=== PATIENT | female | born 1975 | race Hispanic/Latino ===

== ENCOUNTER 2022-12-19 19:19 | Emergency (ER) | payer SELFPAY ==
--- OUTSIDE RECORDS SUMMARY | 2022-12-19 19:23 | XMS REPORT | Continuity of Care Document ---
:[address] [facility] t Address [address] [place] [address] [address] [place] [address] Care Team Providers Name Role Phone Thelma Polanco Primary Care Physician Unavailable DRU PICKERING Attending Clinician Unavailable Dru Pickering MD Attending Clinician OLGA DUGGAN Attending Clinician Unavailable [place] Attending Clinician Unavailable OTHER, ENTER NAME IN NOTES Attending Clinician Unavailable Re Daniels PA-C Attending Clinician RE DANIELS Attending Clinician Unavailable Doctor Unassigned, [place] Attending Clinician Unavailable [place] Admitting Clinician Unavailable Payers Payer Name Policy Type Policy Number Effective Date Expiration Date S ource Problems This patient has no known problems. Allergies, Adverse Reactions, Alerts Allergy Allergy Status Severity Reaction(s) Onset Inactive Treating Comm ents Source Name Type Date Date Clinician Mold Allergy Active [place] [facility] VENOM-WA Allergy Active [place] SP to [facility] ANIMAL Allergy Active [place] DANDER [facility] House Allergy Active [place] Dust to [facility] INSECT Allergy Active [place] VENOM to [facility] Latex Allergy Active [place] [facility] NO KNOWN Drug Active Univers ALLERGIE Class [facility] [place] [facility] Social History Social Habit Start Date Stop Date Quantity Comments Source History of Cigarette Smoker Universi ty of tobacco use [facility] Exposure to 2022-12-01 2022-12-11 Not sure University SARS-CoV-2 00:00:00 14:29:00 [facility] (event) Branch Tobacco use and 2022-12-11 2022-12-11 Smokeless tobacco Un iversity of exposure 00:00:00 00:00:00 non-user [facility] Sex Assigned At [birth year] Universit y of 00:00:00 00:00:00 [facility] Smoking Status Start Date Stop Date Source Heavy Tobacco Smoker [facility] Tobacco smoking consumption [facility] Smokes tobacco daily 2022-12-11 00:00:00 [facility] Medications Ordered Filled Start Stop Current Ordering Indication Dosage Frequency Signature Comments Components Source Medication Medication Date Date Medication? Clinician (SIG) Name Name metoprolol Yes 25mg Take 1 Unive rs succinate 3-10 tablet by ity o f XL 25 mg 24 [place] tablet 00 the Medical morning. Branch metoprolol Yes 25mg Take 1 Unive rs succinate 3-10 tablet by ity o f XL 25 mg 24 [place] 00 the Medical morning. Branch losartan-hy Yes 1{tbl} Take 1 Un chaitanya drochloroth 3-03 tablet by ity of iazide 00:00: mouth [place] 50-12.5 mg 00 every Medical per tablet morning. Bran h losartan-hy Yes 1{tbl} Take 1 Un chaitanya drochloroth 3-03 tablet by ity of iazide 00:00: mouth [place] 50-12.5 mg 00 every Medical per tablet morning. Branc h aspirin 81 aspirin 81 No 1capsul Q1D aspirin 81 [place] mg capsule mg capsule e(s) mg capsule da Take 1 Take 1 Take 1 [facility] capsule capsule capsule al every day every day every day Health by oral by oral by oral Outrea c route. route. route. h Program doxycycline doxycycline No doxycyclin [place] hyclate 100 hyclate 100 e hyclate da mg capsule mg capsule 100 mg E piscop TAKE 1 TAKE 1 capsule al CAPSULE BY CAPSULE BY TAKE 1 H ealth MOUTH TWICE MOUTH TWICE CAPSULE BY Outreac DAILY FOR 7 DAILY FOR 7 MOUTH h DAYS DAYS TWICE Program DAILY FOR 7 DAYS losartan 50 losartan 50 No 1 Q1D losartan [place] mg-hydrochl mg-hydrochl 50 d a orothiazide orothiazide mg-hydroch [facility] 12.5 mg 12.5 mg lorothiazi al tablet Take tablet Take de 12.5 mg Health 1 tablet 1 tablet tablet Outre ac every day every day Take 1 h by oral by oral tablet Program route in route in every day the the by oral morning. morning. route in for blood for blood the pressure pressure morning. for blood pressure Wellbutrin Wellbutrin No 1 Q1D Wellbutrin [place] SR 150 mg SR 150 mg SR 150 mg da tablet, 12 tablet, 12 tablet, 12 [facility] hr hr hr al sustained-r sustained-r sustained- Health elease Take elease Take release Outreac 1 tablet 1 tablet Take 1 h every day every day tablet Pro gram by oral by oral every day route. for route. for by oral 3 days then 3 days then route. for increase to increase to 3 days 1 tablet 1 tablet then twice twice increase daily. daily. to 1 tablet twice daily. Immunizations Ordered Immunization Filled Immunization Date Status Commen ts Source Name Name Tdap Tdap 2020-10-01 Completed [facility] 00:00:00 [facility] Vital Signs Vital Name Observation Time Observation Value Comments Source Systolic blood 2022-12-11 19:48:00 183 mm[Hg[facility] Diastolic blood 2022-12-11 19:48:00 102 mm[facility]Hg[facility] Heart rate 2022-12-11 19:48:00 82 /min [facility] Respiratory rate 2022-12-11 19:48:00 18 /min [facility] Body height 2022-12-11 19:48:00 147.3 cm [facility] Body weight 2022-12-11 19:48:00 68.04 kg [facility] BMI 2022-12-11 19:48:00 31.35 kg/m2 [facility] BP Diastolic 2022-12-01 00:00:00 130 mm[Hg] [place] [facility] Height 2022-12-01 00:00:00 58 [in_i] [place] [facility] BMI (Body Mass 2022-12-01 00:00:00 31.4 kg/m2 [place] nurses aide Index) [facility] BP Systolic 2022-12-01 00:00:00 186 mm[Hg] [place] [facility] Body Weight 2022-12-01 00:00:00 2405 [oz_av] [place] [facility] Procedures Procedure Date / Time Performed Performing Clinician [facility] CONSENT/REFUSAL FOR 2022-11-17 16:10:03 Doctor Unassigned, No Un [facility] DIAGNOSIS AND Name [facility] Branch TREATMENT Caesarean Section 2007-10-01 00:00:00 [facility] Tubal Ligation 2007-10-01 00:00:00 [facility] Plan of Care Planned Activity Planned Date Details Comments Source Future Scheduled 2022-12-06 HbA1c (hemoglobin [place] nurses aide [facility] Test 00:00:00 A1c), blood [code Health Out reach = HbA1c Program (hemoglobin A1c), blood] Future Scheduled 2022-12-06 microalbumin/creat [place] [facility] 00:00:00 inine, mass ratio, Health [facility] urine [code = Program microalbumin/creat inine, mass ratio, urine] Future Scheduled 2022-12-06 lipid panel, serum [place] [facility] 00:00:00 [code = lipid Health Outreac h panel, serum] Program Future Scheduled 2022-12-06 thyroid panel, [facility] Test 00:00:00 serum [code = Health Outreac h thyroid panel, Program serum] Future Scheduled 2022-12-06 CBC w/ auto diff [place] [facility] 00:00:00 [code = CBC w/ Health Outrea ch auto diff] Program Future Scheduled 2022-12-06 CMP, serum or [facility] Test 00:00:00 plasma [code = Health Outrea ch CMP, serum or Program plasma] Future Scheduled 2022-12-06 vitamin D, [facility] Test 00:00:00 25-hydroxy, total, Health [facility] serum [code = Program vitamin D, 25-hydroxy, total, serum] Encounters Start End Encounter Admission Attending Care Care Encounter Source Date/Time Date/Time Type Type Clinicians Facility Department ID 2022-12-11 2022-12-11 [facility] [id number] Univers 14:45:00 15:03:00 DRU [facility] 2022-12-11 2022-12-11 Office [facility] [id number] Univers 14:45:00 15:03:00 Visit Dru PRATER [id number] [facility] [id number] Matthew hannah PROFESSIO [id number] [address] 2022-12-04 2022-12-04 [facility] [id number] Univers 09:00:00 09:00:00 OLGA [facility] 2022-12-02 2022-12-02 Outpatient KAIDEN CADET [facility] [id number] [place] 00:00:00 00:00:[place] [id number] [place] [facility] 2022-12-01 2022-12-01 Outpatient KAIDEN CADET [facility] [id number] [place] 00:00:00 00:[place] [id number] [facility] 2022-12-01 2022-12-01 Vandana CADET [place] - [id number] M [facility] 00:00:00 00:00:00 Dagoberto Brothers, [facility] INSTRUCTIONAL WRITER: [id number] [facility] [place], [facility] [id number] Joselito lópez , Ph. 2022-11-30 2022-11-30 Outpatient [facility] [id number] [place] 00:00:00 00:00:[place] [id number] da [facility] Outreac h Program 2022-11-27 2022-11-27 Outpatient UR OTHER, [facility] [id number] [place] 18:55:00 18:55:00 ENTER -[id number] [facility] 2022-11-17 2022-11-17 Office Re Daniels RUST [id number] Univers 10:20:00 10:40:00 Visit MULTISPEC [id number] ity of [place] [id number] [facility] [id number] [facility] [place] [address] [facility] 2022-11-17 2022-11-17 Outpatient R RE DANIELS [facility] [id number] Univers 10:20:00 10:20:00 RE DANIELS it y of [facility] 2022-11-17 2022-11-17 Orders Doctor JEN [id number] Univers 00:00:00 00:00:00 Only Unassigned, FRANCESCA [id number] ity of [place] [facility] [id number] Juan [id number] [place] [address] Branch Results This patient has no known results.
[2022-12-19] MEDS ORDERED: ACETAMINOPHEN 325 MG TABLET ONE (21:47)
[2022-12-19 21:50] LABS: Absolute Lymphocytes (CBC) 2.3 K/uL (0.7-4.9); Hematocrit 40.4 % (36.0-45.0); Lymphocytes % 20.8 % (15.3-44.8); MCV 83.2 fL (80-100); MPV 7.1 fL (7.6-11.3); RBC Red Blood Cell Count 4.86 M/uL (3.86-4.86)
[2022-12-19 21:58] LABS: Protime INR 1.09
--- NOTE | 2022-12-19 22:00 | RAD REPORT ---
EXAM DESCRIPTION: RAD - Chest Single View - 12/19/2022 9:47 pm CLINICAL HISTORY: CHEST PAIN Chest pain. COMPARISON: <Comparisons> FINDINGS: Portable technique limits examination quality. The lungs are grossly clear. The heart is normal in size. No displaced fractures. IMPRESSION: No acute intrathoracic process suspected.
--- NOTE | 2022-12-19 22:12 | RAD REPORT ---
EXAM DESCRIPTION: CT - Head Brain Wo Cont - 12/19/2022 10:03 pm CLINICAL HISTORY: headache, elevated blood pressure COMPARISON: No comparisons TECHNIQUE: All CT scans are performed using dose optimization technique as appropriate and may inclu de automated exposure control or mA/KV adjustment according to patient size. FINDINGS: No intracranial hemorrhage, hydrocephalus or extra-axial fluid collection.No areas of brai n edema or evidence of midline shift. The paranasal sinuses and mastoids are clear. The calvarium is intact. IMPRESSION: No acute intracranial abnormality.
[2022-12-19 22:20] LABS: BUN Blood Urea Nitrogen 22 mg/dL (7-18); Bicarbonate 27 mEq/L (21-32); Glucose Level 106 mg/dL (74-106); Potassium 3.7 mEq/L (3.5-5.1); Sodium Level 138 mEq/L (136-145)
[2022-12-19 22:21] LABS: ALT/SGPT 22 U/L (13-56); AST/SGOT 9 U/L (15-37); Albumin 3.4 g/dL (3.4-5.0); Alkaline Phosphatase 113 U/L (45-117); Bilirubin Direct < 0.1 mg/dL (0-0.2); Bilirubin Total 0.2 mg/dL (0.2-1.0); Glomerular Filtration Rate 79 ml/min (=/>90); Protein, Total 7.8 g/dL (6.4-8.2)
[2022-12-19 22:22] LABS: Magnesium 2.1; NT PRO-BNP 82 pg/mL (<125); Troponin High Sensitivity 6.7 (<58.9)
--- NOTE | 2022-12-19 22:58 | ER ---
Nurse's Notes [facility] Name: Cynthia López Age: 47 yrs Sex: Female : 1975 Arrival Date: 12/19/2022 Time: 19:24 Bed 24 Private MD: Diagnosis: Chest pain, unspecified;Headache Presentation: 12/19 19:45 Chief complaint: Patient states: States "I got DX with HTN 2 weeks ago", states has had ll3 chest pain, H/A, and high BP ever since. Coronavirus screen: Vaccine status: Patient reports being unvaccinated. At this time, the client does not indicate any symptoms associated with coronavirus-19. Ebola Screen: No symptoms or risks identified at this time. Initial Sepsis Screen: Does the patient meet any 2 criteria? HR > 90 bpm. No. Patient's initial sepsis screen is negative. Does the patient have a suspected source of infection? No. Patient's initial sepsis screen is negative. Risk Assessment: Do you want to hurt yourself or someone else? Patient reports no desire to harm self or others. Onset of symptoms was December 05, 2022. 19:45 Method Of Arrival: Ambulatory ll3 19:45 Acuity: RAKEL 2 ll3 Triage Assessment: 19:48 Headache History: The patient has had previous headaches and this one is similar to ll3 previous episodes. General: Appears uncomfortable, Behavior is calm, cooperative. Pain: Complains of pain in mid-sternal area Pain currently is 3 out of 10 on a pain scale. Quality of pain is described as pressure, Pain began 2 weeks ago Is continuous. Pain: Also complains of shortness of breath. Neuro: Reports dizziness, since 2 weeks ago headache. Cardiovascular: Chest pain is described as vague, quality is pressure, is located in anterior chest wall began 2 weeks ago. Respiratory: Reports shortness of breath Respiratory effort is even, unlabored, Respiratory pattern is regular, symmetrical. Derm: Skin is pink, warm \\T\\ dry. 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 - Social history:: Smoking status: Patient reports the use of cigarette tobacco products, smokes one pack cigarettes per day. Screenin:00 [facility] ED Fall Risk Assessment (Adult) History of falling in the last 3 months, pf1 including since admission No falls in past 3 months (0 pts) Confusion or Disorientation No (0 pts) Intoxicated or Sedated No (0 pts) Impaired Gait No (0 pts) Mobility Assist Device Used No (0 pt) Altered Elimination No (0 pt) Score/Fall Risk Level 0 - 2 = Low Risk Oriented to surroundings, Maintained a safe environment, Educated pt \\T\\ family on fall prevention, incl call for assistance when getting out of bed, Assessed \\T\\ reinforced patient's understanding of fall precautions, Provided non-skid footwear, Hourly rounding (assess needs \\T\\ fall precautionary measures) done, Used ambulatory aids as needed (educated on \\T\\ assisted with), Used gait belt as appropriate. 21:00 Abuse screen: Denies threats or abuse. Nutritional screening: No deficits noted. pf1 Tuberculosis screening: No symptoms or risk factors identified. Assessment: 21:00 General: Appears in no apparent distress. comfortable, well groomed, well developed, pf1 Behavior is calm, cooperative, appropriate for age, quiet. 21:00 Pain: Complains of pain in chest and mid-sternal area Pain currently is 0 out of 10 on pf1 a pain scale. Pain began 2 weeks. Neuro: Level of Consciousness is awake, alert, obeys commands, Oriented to person, place, time, situation, Reports headache 2 weeks with elevated BP. Cardiovascular: Parent/caregiver reports patient has had chest pain, since elevated BP. Respiratory: No deficits noted. Airway is patent Trachea midline Respiratory effort is even, unlabored, Respiratory pattern is regular, symmetrical, Breath sounds are clear bilaterally. GI: No deficits noted. Abdomen is flat, non-distended, Bowel sounds present X 4 quads. Abd is soft and non tender X 4 quads. : No deficits noted. No signs and/or symptoms were reported regarding the genitourinary system. EENT: No deficits noted. No signs and/or symptoms were reported regarding the EENT system. Derm: No deficits noted. No signs and/or symptoms reported regarding the dermatologic system. Musculoskeletal: No deficits noted. Circulation, motion, and sensation intact. Capillary refill < 3 seconds, Range of motion: intact in all extremities. 22:00 Reassessment: Patient appears in no apparent distress at this time. No changes from pf1 previously documented assessment. Patient and/or family updated on plan of care and expected duration. Pain level reassessed. Patient is alert, oriented x 3, equal unlabored respirations, skin warm/dry/pink. Patient states feeling better. Patient states symptoms have improved. 23:00 Reassessment: Patient appears in no apparent distress at this time. No changes from pf1 previously documented assessment. Patient and/or family updated on plan of care and expected duration. Pain level reassessed. Patient is alert, oriented x 3, equal unlabored respirations, skin warm/dry/pink. Patient states feeling better. Patient states symptoms have improved. Vital Signs: 19:45 BP 170 / 101; Pulse 108; Resp 18; Temp 99(O); Pulse Ox 94% on R/A; Weight 68.04 kg (R); ll3 Height 4 ft. 10 in. (R); Pain 3/10; 21:00 BP 157 / 97; Pulse 96; Resp 20; Pulse Ox 97% ; pf1 22:00 BP 138 / 95; Pulse 91; Resp 16; Pulse Ox 96% ; pf1 23:00 BP 145 / 97; Pulse 89; Resp 16; Pulse Ox 97% on R/A; Pain 0/10; pf1 19:45 Body Mass Index 31.35 (68.04 kg, 147.32 cm) ll3 19:45 Pain Scale: Adult ll3 23:00 Pain Scale: Adult pf1 ED Course: 19:24 Patient arrived in ED. ja2 19:48 Triage completed. ll3 19:48 Arm band placed on Patient placed in waiting room, Patient notified of wait time. ll3 19:59 Ousmane Lees PA is PHCP. [facility] 19:59 Nery Cochran MD is Attending Physician. [facility] 19:59 EKG completed in triage. Results shown to MD. ll3 21:00 Patient has correct armband on for positive identification. Placed in gown. Bed in low pf1 position. Call light in reach. 21:10 Belinda villafuerte, RN is Primary Nurse. pf1 21:30 No provider procedures requiring assistance completed. Inserted saline lock: 20 gauge pf1 in left antecubital area, using aseptic technique. Blood collected. 21:37 Basic Metabolic Panel Sent. as7 21:37 CBC with Diff Sent. as7 21:37 LFT's Sent. as7 21:37 Magnesium Sent. as7 21:37 NT PRO-BNP Sent. as7 21:37 PT-INR Sent. as7 21:37 Troponin HS Sent. as7 21:49 XRAY Chest (1 view) In Process Unspecified. EDMS 22:05 CT Head Brain wo Cont In Process Unspecified. EDMS 23:23 IV discontinued, intact, bleeding controlled, No redness/swelling at site. Pressure pf1 dressing applied. Administered Medications: 21:46 Drug: Acetaminophen PO 650 mg Route: PO; pf1 22:40 Follow up: Response: No adverse reaction; Marked relief of symptoms; Pain is decreased pf1 Medication: 23:24 VIS not applicable for this client. pf1 Outcome: 22:57 Discharge ordered by MD. [facility] 23:24 Discharged to home ambulatory, with family. pf1 23:24 Condition: improved 23:24 Discharge instructions given to patient, Instructed on discharge instructions, follow up and referral plans. Demonstrated understanding of instructions, follow-up care. 23:24 Patient left the ED. pf1 Signatures: Dispatcher [employer] EDMS Ousmane Lees PA PA Kirsten Stewart Lynsea, RN RN 3 Belinda villafuerte, RN RN pf1 Zayra Kovacs as7 Corrections: (The following items were deleted from the chart) 19:49 19:48 PSHx: None; ll3 ll3
--- NOTE | 2022-12-19 22:58 | EDPHYS ---
Physician Documentation [facility] Name: Cynthia López Age: 47 yrs Sex: Female : 1975 Arrival Date: 12/19/2022 Time: 19:24 Bed 24 Private MD: ED Physician Nery Cochran HPI: 12/19 20:06 This 47 yrs old Female presents to ER via Ambulatory with complaints of High jmm Blood Pressure, Headache, Chest Pain. 20:06 Is a 47-year-old female with history of hypertension the presents emerged department jmm with complaints of headache elevated blood pressure, chest pain beginning proxy 2 weeks ago and initially diagnosed with hypertension. Patient is on 2 different medications. Patient continues to have chest pain. PCP advised her to go to the ED.. 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 - Social history:: Smoking status: Patient reports the use of cigarette tobacco products, smokes one pack cigarettes per day. ROS: 20:06 Constitutional: Negative for fever, chills, and weight loss, Cardiovascular: Negative jmm for chest pain, palpitations, and edema, Respiratory: Negative for shortness of breath, cough, wheezing, and pleuritic chest pain. 20:06 MS/extremity: Positive for injury or acute deformity, pain. 20:06 All other systems are negative. Exam: 20:06 Constitutional: This is a well developed, well nourished patient who is awake, alert, jmm and in no acute distress. Head/Face: atraumatic. Eyes: EOMI, no conjunctival erythema appreciated ENT: Moist Mucus Membranes Neck: Trachea midline, Supple Chest/axilla: Normal chest wall appearance and motion. Cardiovascular: Regular rate and rhythm. No edema appreciated Respiratory: Normal respirations, no respiratory distress appreciated Abdomen/GI: Non distended Back: Normal ROM Skin: General appearance color normal MS/ Extremity: Moves all extremities, no obvious deformities appreciated, no edema noted to the lower extremities Neuro: Awake and alert Psych: Behavior is normal, Mood is normal, Patient is cooperative and pleasant 22:56 ECG was reviewed by the Attending Physician. [facility] Vital Signs: 19:45 BP 170 / 101; Pulse 108; Resp 18; Temp 99(O); Pulse Ox 94% on R/A; Weight 68.04 kg (R); ll3 Height 4 ft. 10 in. (R); Pain 3/10; 21:00 BP 157 / 97; Pulse 96; Resp 20; Pulse Ox 97% ; pf1 22:00 BP 138 / 95; Pulse 91; Resp 16; Pulse Ox 96% ; pf1 23:00 BP 145 / 97; Pulse 89; Resp 16; Pulse Ox 97% on R/A; Pain 0/10; pf1 19:45 Body Mass Index 31.35 (68.04 kg, 147.32 cm) ll3 19:45 Pain Scale: Adult ll3 23:00 Pain Scale: Adult pf1 MDM: 20:06 Patient medically screened. [facility] 22:55 Differential diagnosis: hypertensive crisis, Malignant HTN, intracerebral hemorrhage, [facility] Acute DE. Data reviewed: vital signs, nurses notes, lab test result(s), EKG, radiologic studies. I considered the following discharge prescriptions or medication management in the emergency department Medications were administered in the Emergency Department. See MAR. Independent interpretation of the following test(s) in the Emergency Department X-Ray: My interpretation is no infiltrate. Counseling: I had a detailed discussion with the patient and/or guardian regarding: the historical points, exam findings, and any diagnostic results supporting the discharge/admit diagnosis, lab results, radiology results, the need for outpatient follow up. 12/19 20:12 Order name: Basic Metabolic Panel; Complete Time: : [facility] 12/19 20:12 Order name: CBC with Diff; Complete Time: : [facility] 12/19 20:12 Order name: LFT's; Complete Time: : [facility] 12/19 20:12 Order name: Magnesium; Complete Time: : [facility] 12/19 20:12 Order name: NT PRO-BNP; Complete Time: : [facility] 12/19 20:12 Order name: PT-INR; Complete Time: 22: [facility] 12/19 20:12 Order name: Troponin HS; Complete Time: 22:29 [facility] 12/19 20:12 Order name: XRAY Chest (1 view); Complete Time: 22:17 [facility] 12/19 21:24 Order name: CT Head Brain wo Cont; Complete Time: 22:17 [facility] 12/19 20:12 Order name: EKG; Complete Time: 20:12 [facility] 12/19 20:12 Order name: Cardiac monitoring; Complete Time: 21:37 [facility] 12/19 20:12 Order name: EKG - Nurse/Tech; Complete Time: 21:24 [facility] 12/19 20:12 Order name: IV Saline Lock; Complete Time: 21:37 [facility] 12/19 20:12 Order name: Labs collected and sent; Complete Time: :37 [facility] 12/19 20:12 Order name: O2 Per Protocol; Complete Time: 21: [facility] 12/19 20:12 Order name: O2 Sat Monitoring; Complete Time: 21:37 [facility] EC:56 Rate is 103 beats/min. Rhythm is regular. MO interval is normal. QRS interval is jmm normal. QT interval is normal. T waves are Inverted in leads aVR, V1. No ST changes noted. Reviewed by me. Administered Medications: 21:46 Drug: Acetaminophen PO 650 mg Route: PO; pf1 22:40 Follow up: Response: No adverse reaction; Marked relief of symptoms; Pain is decreased pf1 Disposition Summary: 12/19/22 22:57 Discharge Ordered Location: Home [facility] Condition: Stable [facility] Diagnosis - Chest pain, unspecified [facility] - Headache [facility] Followup: [facility] - With: Private Physician - When: 1 - 2 days - Reason: Recheck today's complaints, Continuance of care, Re-evaluation by your physician Discharge Instructions: - Discharge Summary Sheet jm - Nonspecific Chest Pain, Adult jmm - Hypertension, Adult jm Forms: - Medication Reconciliation Form [facility] - Thank You Letter [facility] - Antibiotic Education m - Prescription Opioid Use [facility] Signatures: Dispatcher [employer] EDMS Ousmane Lees PA PA jmm Loubet, Lynsea RN RN ll3 Belinda villafuerte RN RN pf1 Corrections: (The following items were deleted from the chart) 19:49 19:48 PSHx: None; ll3 ll3
[2022-12-19 23:45] VITALS: TEMP 99
[2022-12-20 00:22] VITALS: BP 145/97; O2SAT 97
--- NOTE | 2022-12-20 17:22 | EKG ---
Test Date: 2022-12-19 Test Time: 19:55:25 Furnace Tapper: LL MEASUREMENT RESULTS: Intervals: Rate: 103 CT: 128 QRSD: 84 QT: 350 QTc: 458 [place]: P: 74 CT: 128 QRS: 91 T: 78 INTERPRETIVE STATEMENTS: Sinus tachycardia Rightward axis Anterior infarct, age undetermined Abnormal ECG No previous ECG available for comparison Electronically Signed On 12-20-22 17:20:34 CDT by Perfecto Galvin
== END 2022-12-19 23:24 | disposition home or self-care (01) ==
LOC: ER 19:19
DX: R07.89 Other chest pain (principal); R51.9 Headache, unspecified
CPT/HCPCS: 36415; 70450; 71045; 80048; 80076; 83735; 83880; 84484; 85025; 85610; 93005

== ENCOUNTER 2024-11-12 17:39 | Emergency (ER) | payer SELFPAY ==
--- OUTSIDE RECORDS SUMMARY | 2024-11-12 17:42 | XMS REPORT | Continuity of Care Document ---
Author Name Unknown Address [address] [facility] [address] [place] [address] [facility] thconnect Address [address] [facility] [place] [address] Care Team Providers Care Label Stamper Name Role Phone OFE RICHARDSON Primary Care Physician Khloe PERRY Attending Clinician Unavailable DRU FRAUSTO Attending Clinician Unavailab Dru Stiles MD Attending Clinician [phone] OLGA DUGGAN Attending Clinician Unavailable OTHER, ENTER NAME IN NOTES Attending Clinician U Re Tello PA-C Attending Clinician [phone] RE DANIELS Attending Clinician Unavailable Doctor Unassigned, [place] Attending Clinician U ryan PERRY Admitting Clinician Unavailable Payers Payer Name Policy Type Policy Number Effective Date Expirati on Date Source Problems Condition Name Condition Details Condition Category Status Onset Date Resolution Date Last Treatment Date Treating Clinician Comments Source Body mass index 30+ - obesity Body Mass Index 30+ - Obesity Problem Active 12-22 00:00: 00 [facility] Mixed anxiety and depressive disorder Mixed Anxiety and Depressive Disorder Problem Active - 00:00: 00 [facility] Tobacco dependence syndrome Tobacco Dependence Syndrome Problem Active 12-22 00:00: 00 [facility] Hypertensi ve disorder Hypertensi ve Disorder Problem Active 12-22 00[facility]00: 00 [facility] Allergic rhinitis Allergic Rhinitis Problem Active 12-22 00:00: 00 [place] [facility] Vitamin D deficiency Vitamin D Deficiency Problem Active 12-21 00:00: 00 [place] [facility] Prediabete s Prediabete s Problem Active 12-21 00:00: 00 [place] [facility] Allergies, Adverse Reactions, Alerts Allergy Name Allergy Type Status Severity Reaction(s) Onset Date Inactive Date Treating Clinician Comments Source NO KNOWN ALLERGIE S Drug Class Active [facility] acute hospital Mold Allergy to substanc e Active [place] [facility] VENOM-WA SP Allergy to substanc e Active [facility] ANIMAL DANDER Allergy to substanc e Active [facility] House Dust Allergy to substanc e Active [facility] INSECT VENOM Allergy to substanc e Active [facility] [facility] Latex Allergy to substanc e Active [place] [facility] Social History Social Habit Start Date Stop Date Quantity Comments Source History of tobacco use Cigarette Smoker [facility] Exposure to SARS-CoV-2 (event) 2022-12-01 00:00:00 2022-12-11 14:29:00 Not sure [facility] Tobacco use and exposure 2022-12-11 00:00:00 2022-12-11 00:00:00 Smokeless tobacco non-user [facility] Sex Assigned At 1975 00:00:00 1975 00:00:00 [facility] Smoking Status Start Date Stop Date Source Heavy Tobacco Smoker [facility] Tobacco smoking consumption unknown [facility] Smokes tobacco daily 2022-12-11 00:00:00 [facility] Medications Ordered Medication Name Filled Medication Name Start Date Stop Date Current Medication? Ordering Clinician Indication Dosage Frequency Signature (SIG) Comments Components Source metoprolol succinate XL 25 mg 24 hr tablet 2023-0 3-10 00:00: 00 Yes 25mg Take 1 tablet by mouth in the morning. [facility] acute hospital cholecalcif spike (vitamin D3) 125 mcg (5,000 unit) capsule Take 2 capsules every day by oral route with meals. for vitamin D deficiency. cholecalcif spike (vitamin D3) 125 mcg (5,000 unit) capsule Take 2 capsules every day by oral route with meals. for vitamin D deficiency. No 2capsul e(s) Q1D cholecalci ferol (vitamin D3) 125 mcg (5,000 unit) capsule Take 2 capsules every day by oral route with meals. for vitamin D deficiency . [facility] fluticasone propionate 50 mcg/actuati on nasal spray,suspe nsion Irrigon 2 sprays each nostril every morning as needed for allergies and cough fluticasone propionate 50 mcg/actuati on nasal spray,suspe nsion Irrigon 2 sprays each nostril every morning as needed for allergies and cough No fluticason e propionate 50 mcg/actuat ion nasal spray,susp ension Irrigon 2 sprays each nostril every morning as needed for allergies and cough [facility] losartan 50 mg-hydrochl orothiazide 12.5 mg tablet Take 1 tablet every day by oral route in the morning. for blood pressure losartan 50 mg-hydrochl orothiazide 12.5 mg tablet Take 1 tablet every day by oral route in the morning. for blood pressure No 1 Q1D losartan 50 mg-hydroch lorothiazi de 12.5 mg tablet Take 1 tablet every day by oral route in the morning. for blood pressure [facility] metoprolol succinate ER 50 mg tablet,exte nded release 24 hr Take 1 tablet every day by oral route at bedtime. metoprolol succinate ER 50 mg tablet,exte nded release 24 hr Take 1 tablet every day by oral route at bedtime. No 1 Q1D metoprolol succinate ER 50 mg tablet,ext ended release 24 hr Take 1 tablet every day by oral route at bedtime. [facility] Wellbutrin SR 150 mg tablet, 12 hr sustained-r elease Take 1 tablet twice a day by oral route. for anxiety Wellbutrin SR 150 mg tablet, 12 hr sustained-r elease Take 1 tablet twice a day by oral route. for anxiety No 1 BID Wellbutrin SR 150 mg tablet, 12 hr sustained- release Take 1 tablet twice a day by oral route. for anxiety [facility] albuterol sulfate HFA 90 mcg/actuati on aerosol inhaler Inhale 2 puffs every 4 hours by inhalation route as needed. albuterol sulfate HFA 90 mcg/actuati on aerosol inhaler Inhale 2 puffs every 4 hours by inhalation route as needed. No 2puff(s ) Q4H albuterol sulfate HFA 90 mcg/actuat ion aerosol inhaler Inhale 2 puffs every 4 hours by inhalation route as needed. [facility] amlodipine 5 mg tablet Take 1 tablet every day by oral route as directed. amlodipine 5 mg tablet Take 1 tablet every day by oral route as directed. No 1 Q1D amlodipine 5 mg tablet Take 1 tablet every day by oral route as directed. [facility] aspirin 81 mg capsule Take 1 capsule every day by oral route. aspirin 81 mg capsule Take 1 capsule every day by oral route. No 1capsul e(s) Q1D aspirin 81 mg capsule Take 1 capsule every day by oral route. [facility] benzonatate 100 mg capsule take one capsule by mouth every 4-6 hours as needed for cough benzonatate 100 mg capsule take one capsule by mouth every 4-6 hours as needed for cough No benzonatat e 100 mg capsule take one capsule by mouth every 4-6 hours as needed for cough [facility] bupropion HCl SR 150 mg tablet,12 hr sustained-r elease TAKE 1 TABLET BY MOUTH TWICE DAILY bupropion HCl SR 150 mg tablet,12 hr sustained-r elease TAKE 1 TABLET BY MOUTH TWICE DAILY No bupropion HCl SR 150 mg tablet,12 hr sustained- release TAKE 1 TABLET BY MOUTH TWICE DAILY [facility] cetirizine 10 mg tablet TAKE 1 TABLET BY MOUTH ONCE DAILY AT BEDTIME cetirizine 10 mg tablet TAKE 1 TABLET BY MOUTH ONCE DAILY AT BEDTIME No cetirizine 10 mg tablet TAKE 1 TABLET BY MOUTH ONCE DAILY AT BEDTIME [facility] cholecalcif spike (vitamin D3) 125 mcg (5,000 unit) capsule TAKE 2 CAPSULES BY MOUTH ONCE DAILY WITH MEALS cholecalcif spike (vitamin D3) 125 mcg (5,000 unit) capsule TAKE 2 CAPSULES BY MOUTH ONCE DAILY WITH MEALS No cholecalci ferol (vitamin D3) 125 mcg (5,000 unit) capsule TAKE 2 CAPSULES BY MOUTH ONCE DAILY WITH MEALS [facility] Program doxycycline hyclate 100 mg tablet Take 1 tablet twice a day by oral route as directed for 7 days. doxycycline hyclate 100 mg tablet Take 1 tablet twice a day by oral route as directed for 7 days. No 1 BID doxycyclin e hyclate 100 mg tablet Take 1 tablet twice a day by oral route as directed for 7 days. [facility] fluticasone propionate 50 mcg/actuati on nasal spray,suspe nsion USE 2 SPRAY(S) IN EACH NOSTRIL IN THE MORNING NEEDED FOR ALLERGIES AND COUGH fluticasone propionate 50 mcg/actuati on nasal spray,suspe nsion USE 2 SPRAY(S) IN EACH NOSTRIL IN THE MORNING NEEDED FOR ALLERGIES AND COUGH No fluticason e propionate 50 mcg/actuat ion nasal spray,susp ension USE 2 SPRAY(S) IN EACH NOSTRIL IN THE MORNING NEEDED FOR ALLERGIES AND COUGH [facility] ipratropium 0.5 mg-albutero l 3 mg (2.5 mg base)/3 mL nebulizatio n soln inhale 3 ml by nebulizatio n route 1 time only ipratropium 0.5 mg-albutero l 3 mg (2.5 mg base)/3 mL nebulizatio n soln inhale 3 ml by nebulizatio n route 1 time only No ipratropiu m 0.5 mg-albuter ol 3 mg (2.5 mg base)/3 mL nebulizati on soln inhale 3 ml by nebulizati on route 1 time only [facility] Program losartan 50 mg-hydrochl orothiazide 12.5 mg tablet TAKE 1 TABLET BY MOUTH ONCE DAILY IN THE MORNING losartan 50 mg-hydrochl orothiazide 12.5 mg tablet TAKE 1 TABLET BY MOUTH ONCE DAILY IN THE MORNING No losartan 50 mg-hydroch lorothiazi de 12.5 mg tablet TAKE 1 TABLET BY MOUTH ONCE DAILY IN THE MORNING [facility] metoprolol succinate ER 50 mg tablet,exte nded release 24 hr TAKE 1 TABLET BY MOUTH ONCE DAILY AT BEDTIME metoprolol succinate ER 50 mg tablet,exte nded release 24 hr TAKE 1 TABLET BY MOUTH ONCE DAILY AT BEDTIME No metoprolol succinate ER 50 mg tablet,ext ended release 24 hr TAKE 1 TABLET BY MOUTH ONCE DAILY AT BEDTIME [facility] prednisone 5 mg tablet Take 1 tablet every day by oral route as needed. decrease inflammatio n prednisone 5 mg tablet Take 1 tablet every day by oral route as needed. decrease inflammatio n No 1 Q1D prednisone 5 mg tablet Take 1 tablet every day by oral route as needed. decrease inflammati on [facility] aspirin 81 mg capsule Take 1 capsule every day by oral route. aspirin 81 mg capsule Take 1 capsule every day by oral route. No 1capsul e(s) Q1D aspirin 81 mg capsule Take 1 capsule every day by oral route. [facility] doxycycline hyclate 100 mg capsule TAKE 1 CAPSULE BY MOUTH TWICE DAILY FOR 7 DAYS doxycycline hyclate 100 mg capsule TAKE 1 CAPSULE BY MOUTH TWICE DAILY FOR 7 DAYS No doxycyclin e hyclate 100 mg capsule TAKE 1 CAPSULE BY MOUTH TWICE DAILY FOR 7 DAYS [facility] Wellbutrin SR 150 mg tablet, 12 hr sustained-r elease Take 1 tablet every day by oral route. for 3 days then increase to 1 tablet twice daily. Wellbutrin SR 150 mg tablet, 12 hr sustained-r elease Take 1 tablet every day by oral route. for 3 days then increase to 1 tablet twice daily. No 1 Q1D Wellbutrin SR 150 mg tablet, 12 hr sustained- release Take 1 tablet every day by oral route. for 3 days then increase to 1 tablet twice daily. [facility] aspirin 81 mg capsule Take 1 capsule every day by oral route. aspirin 81 mg capsule Take 1 capsule every day by oral route. No 1capsul e(s) Q1D aspirin 81 mg capsule Take 1 capsule every day by oral route. [facility] cetirizine 10 mg tablet Take 1 tablet every day by oral route at bedtime. cetirizine 10 mg tablet Take 1 tablet every day by oral route at bedtime. No 1 Q1D cetirizine 10 mg tablet Take 1 tablet every day by oral route at bedtime. [facility] Vital Signs Vital Name Observation Time Observation Value Comments S ource BP Diastolic 2023-01-24 00:00:00 100 mm[Hg] [facility] Height 2023-01-24 00:00:00 58 [in_i] [facility] BMI (Body Mass Index) 2023-01-24 00:00:00 32 kg/m2 [facility] BP Systolic 2023-01-24 00:00:00 161 mm[Hg] [facility] Body Weight 2023-01-24 00:00:00 2452 [oz_av] [facility] BP Diastolic 2022-12-22 00:00:00 98 mm[Hg] [facility] Height 2022-12-22 00:00:00 58 [in_i] [facility] BMI (Body Mass Index) 2022-12-22 00:00:00 32.2 kg/m2 [facility] BP Systolic 2022-12-22 00:00:00 157 mm[Hg] [facility] Body Weight 2022-12-22 00:00:00 2467 [oz_av] [facility] Systolic blood pressure 2022-12-11 19:48:00 183 mm[Hg] [facility] Diastolic blood pressure 2022-12-11 19:48:00 102 mm[Hg] [facility] Heart rate 2022-12-11 19:48:00 82 /min [facility] Respiratory rate 2022-12-11 19:48:00 18 /min [facility] Body height 2022-12-11 19:48:00 147.3 cm [facility] Body weight 2022-12-11 19:48:00 68.04 kg [facility] BMI 2022-12-11 19:48:00 31.35 kg/m2 [facility] BP Diastolic 2022-12-01 00:00:00 130 mm[Hg] [facility] Height 2022-12-01 00:00:00 58 [in_i] [facility] BMI (Body Mass Index) 2022-12-01 00:00:00 31.4 kg/m2 [place] [facility] BP Systolic 2022-12-01 00:00:00 186 mm[Hg] [facility] Body Weight 2022-12-01 00:00:00 2405 [oz_av] [facility] Procedures Procedure Date / Time Performed Performing Clinicia n Source CONSENT/REFUSAL FOR DIAGNOSIS AND TREATMENT 2022-11-17 16:10:03 Doctor Unassigned, [place] [facility] Caesarean Section 2007-10-01 00:00:00 [facility] Tubal Ligation 2007-10-01 00:00:00 [facility] Plan of Care Planned Activity Planned Date Details Comments Source Diagnostic Test Pending 2023-01-24 00:00:00 influenza virus A + B and SARS CoV 2 (COVID-19) and RSV RNA panel, EUNICE+probe, respiratory specimen [code = influenza virus A + B and SARS CoV 2 (COVID-19) and RSV RNA panel, EUNICE+probe, respiratory specimen] [place] [facility] Encounters Start Date/Time End Date/Time Encounter Type Admission Type Attending Clinicians Care Facility Care Department Encounter ID Source 2023-04-15 00:00:00 2023-04-15 00:00:00 Outpatient ALICE_JAVIER CHILEL [facility] [id number] [facility] 2023-03-11 00:00:00 2023-03-11 00:00:00 Outpatient ALICE_JAVIER IE [facility] [id number] [facility] 2023-03-05 14:30:00 2023-03-05 14:30:00 Outpatient DRU DOUGHERTY [facility] [id number] General acute hospital 2023-02-04 00:00:00 2023-02-04 00:00:00 Outpatient GILBERT_KAT IE [facility] [id number] [facility] 2023-01-24 00:00:00 2023-01-24 00:00:00 Outpatient GILBERT_KAT IE [facility] [id number] [facility] 2023-01-24 00:00:00 2023-01-24 00:00:00 Angel Moon APRN-SENIOR MANUFACTURING TEST ENGINEER-C: [address] [place] [address] , [address] [facility] [id number] [facility] 2022-12-26 00:00:00 2022-12-26 00:00:00 Outpatient GILBERT_KAT IE [facility] [id number] [facility] 2022-12-22 00:00:00 2022-12-22 00:00:00 Outpatient GILBERT_KAT IE [facility] [id number] [facility] 2022-12-22 00:00:00 2022-12-22 00:00:00 Vandana Kwong, SENIOR MANUFACTURING TEST ENGINEER: [address] [place] [address] , Ph. [facility] [id number] [facility] 2022-12-21 00:00:00 2022-12-21 00:00:00 Outpatient GILBERT_KAT IE [facility] [id number] [facility] 2022-12-20 00:00:00 2022-12-20 00:00:00 Outpatient GILBERT_KAT IE [facility] [id number] [facility] 2022-12-11 14:45:00 2022-12-11 15:03:00 Outpatient DRU DOUGHERTY [facility] [id number] General acute hospital 2022-12-11 14:45:00 2022-12-11 15:03:00 Office Visit Dru Frausto [facility] [id number] General acute hospital 2022-12-04 09:00:00 2022-12-04 09:00:00 Outpatient OLGA VALENCIA [facility] [id number] General acute hospital 2022-12-02 00:00:00 2022-12-02 00:00:00 Outpatient GILBERT_KAT IE [facility] [id number] [facility] 2022-12-01 00:00:00 2022-12-01 00:00:00 Outpatient GILBERT_KAT IE [place] [id number] [facility] 2022-12-01 00:00:00 2022-12-01 00:00:00 Vandana Kwong, SENIOR MANUFACTURING TEST ENGINEER: [address] [place] [address] , Ph. [facility] [id number] [facility] 2022-11-30 00:00:00 2022-11-30 00:00:00 Outpatient GILBERT_KAT IE [facility] [id number] [facility] 2022-11-27 18:55:00 2022-11-27 18:55:00 Outpatient UR OTHER, ENTER [facility] [id number] [facility] 2022-11-17 10:20:00 2022-11-17 10:40:00 Office Visit Re [facility] [id number] General acute hospital 2022-11-17 10:20:00 2022-11-17 10:20:00 Outpatient R RE DANIELS LEAH [facility] [id number] General acute hospital 2022-11-17 00:00:00 2022-11-17 00:00:00 Orders Only Doctor Unassigned, [place] [facility] [id number] General acute hospital Results Test Description Test Time Test Comments Results Result Co mments Source [facility]
[2024-11-12] MEDS ORDERED: IPRATROPIUM BROM 0.5MG/2.5ML ONE (18:00)
[2024-11-12] MEDS ORDERED: METOPROLOL TAR 50 MG TAB ONE (18:00)
[2024-11-12] MEDS ORDERED: ALBUTEROL 2.5 MG/3 ML NEB SOL ONE (18:00)
--- NOTE | 2024-11-12 18:19 | RAD REPORT ---
EXAMINATION: ONE VIEW CHEST XR CLINICAL INDICATION: COUGH TECHNIQUE: Frontal chest projection is submitted. Examination is limited by patient positioning and t echnique. COMPARISON: 12/19/2022 FINDINGS: The lungs are well inflated and clear. The heart is normal in size. No displaced fractures identified . IMPRESSION: No acute intrathoracic abnormalities.
[2024-11-12 18:29] LABS: SARS-CoV-2 Antigen CONTROL BLUE LINE VIS/BG OK; SARS-CoV-2 Antigen Rapid Res Negative (Negative)
[2024-11-12] MEDS ORDERED: predniSONE 20 MG TAB ONE (18:42)
--- NOTE | 2024-11-12 19:48 | EDPHYS ---
Physician Documentation [facility] Name: Cynthia López Age: 49 yrs Sex: Female : 1975 Arrival Date: 11/12/2024 Time: 17:39 Bed 6 Private MD: ED Physician Bert Leahy HPI: 11/12 17:45 This 49 yrs old Female presents to ER via Unassigned with complaints of Flu kb Symptoms. 17:45 Pt is a 49 year old female who presents for cough, congestion, headache, dizziness, kb shortness of breath that started 10 days ago. Denies fever. . 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 - Infectious Disease History:: Denies. - Social history:: Smoking status: Patient reports the use of cigarette tobacco products, smokes one-half pack cigarettes per day. ROS: 17:45 Constitutional: As per HPI kb Exam: 19:45 Constitutional: This is a well developed, well nourished patient who is awake, alert, kb and in no acute distress. Head/Face: Normocephalic, atraumatic. ENT: Moist Mucous membranes Cardiovascular: Regular rate Skin: Warm, dry with normal turgor. Normal color. MS/ Extremity: Pulses equal, no cyanosis. Neurovascular intact. Full, normal range of motion. Neuro: Awake and alert, GCS 15, oriented to person, place, time, and situation. 19:45 Respiratory: the patient does not display signs of respiratory distress, Respirations: normal, Breath sounds: wheezing: expiratory that is mild, is heard in the left lower lobe and left posterior lower lobe, Vital Signs: 17:47 BP 208 / 131; Pulse 106; Resp 18; Temp 97.3; Pulse Ox 96% on R/A; Weight 68.04 kg; ll1 Height 4 ft. 9 in. ; Pain 6/10; 18:47 BP 179 / 104; Pulse 105; Resp 18; Pulse Ox 96% ; me1 21:20 BP 164 / 99; Pulse 98; Resp 18; Pulse Ox 97% ; cp4 17:47 Body Mass Index 32.46 (68.04 kg, 144.78 cm) ll1 17:47 Pain Scale: Adult ll1 MDM: 17:42 Medical Screening Exam initiated 19:44 Differential diagnosis: flu, covid, uri, pneumonia, bronchitis. Data reviewed: vital kb signs, nurses notes. Counseling: I had a detailed discussion with the patient and/or guardian regarding the historical points, exam findings, and any diagnostic results supporting the discharge/admit diagnosis, lab results, radiology results, the need for outpatient follow up, a family practitioner, to return to the emergency department if symptoms worsen or persist or if there are any questions or concerns that arise at home. Special discussion: I have referred the patient to see his PCP for further evaluation of high blood pressure. ED course: Pt states she is supposed to take metoprolol 50mg daily, but ran out over a year ago so she hasn't taken any. States her blood pressure is always high.. 21:26 I considered the following discharge prescriptions or medication management in the emergency department I discussed and recommended Over The Counter medications, Antibiotics: At this time antibiotics are not recommended. 02 17:46 Order name: Flu; Complete Time: 18:33 kb 11/12 17:46 Order name: SARS-COV-2 Antigen Rapid; Complete Time: 18:33 kb 11/12 17:46 Order name: Strep 11/12 18:32 Order name: Throat Culture EDWA 11/12 17:46 Order name: Chest Single View XRAY; Complete Time: 18:20 kb Administered Medications: 18:04 Drug: Metoprolol PO 50 mg PO once Route: PO; me1 18:47 Follow up: BP 179 / 104; Pulse 105 bpm; Resp 18 bpm; Pulse Ox 96% ; Response: No me1 adverse reaction; Blood pressure is lowered 18:04 Drug: Albuterol Inhalation 2.5 mg Inhalation once Route: Inhalation; me1 18:41 Follow up: Response: No adverse reaction; Wheezing diminished me1 18:04 Drug: Ipratropium Inhalation Aerosol 0.5 mg Inhalation once Route: Inhalation; me1 18:41 Follow up: Response: No adverse reaction; Wheezing diminished me1 18:43 Drug: predniSONE PO 40 mg PO once Route: PO; me1 21:13 Follow up: Response: No adverse reaction cp4 21:13 Drug: Tussionex Pennkinetic ER PO Suspension 5 ml PO once Route: PO; cp4 21:14 Follow up: Response: No adverse reaction cp4 Disposition Summary: 11/12/24 19:47 Discharge Ordered Notes: Location: Home kb Condition: Stable kb Diagnosis - Acute bronchitis, unspecified kb - Essential (primary) hypertension kb Followup: kb - With: Emergency Department - When: As needed - Reason: Worsening of condition Followup: kb - With: Private Physician - When: 2 - 3 days - Reason: Recheck today's complaints, Continuance of care, Re-evaluation by your physician Discharge Instructions: - Discharge Summary Sheet kb - Acute Bronchitis, Adult, [id number] kb - Hypertension, Adult, [id number] kb Forms: - Medication Reconciliation Form kb - Antibiotic Education kb - Prescription Opioid Use kb - Patient Portal Instructions kb - Leadership Thank You Letter kb Prescriptions: - albuterol sulfate 90 mcg/actuation Inhalation HFA Aerosol Inhaler - inhale 2 puff INHALATION route every 4-6 hours As needed; 1 Unspecified; kb Refills: 0, Product Selection Permitted - Prednisone 20 mg Oral Tablet - take 1 tablet ORAL route once daily for 5 days; 5 tablet; Refills: 0, Product kb Selection Permitted - Tessalon Perles 100 mg Oral Capsule - take 1 capsule ORAL route every 8 hours As needed; 15 capsule; Refills: 0, kb Product Selection Permitted - Metoprolol Tartrate 50 mg Oral Tablet - take 1 tablet ORAL route 2 times per day take with meal; 10 tablet; Refills: 0, kb Product Selection Permitted Signatures: Dispatcher [employer] EDWA Leidy Shaw, COUNTER HAND-C COUNTER HAND-Ckb Sanjiv Gonzalez, RN RN ll1 Viji Castelan RN RN me1 Ofelia De La Cruz cp4 Corrections: (The following items were deleted from the chart) 17:47 17:47 Influenza Screen (A \T\ B)+BA.LAB.BRZ ordered. EDMS EDMS 17:47 17:47 SARS-COV-2 Antigen Rapid+I.LAB.BRZ ordered. EDMS EDMS 17:47 17:47 Group A Streptococcus Rapid Sc+BA.LAB.BRZ ordered. EDMS EDMS 17:47 17:47 Chest Single View+RAD.RAD.BRZ ordered. EDMS EDMS 19:44 17:45 Pt is a 49 year old female who presents for cough, congestion, headache, kb dizziness, shortness of breath that started 10 days ago. Denies fever. . kb
--- NOTE | 2024-11-12 19:48 | ER ---
Nurse's Notes [facility] Name: Cynthia López Age: 49 yrs Sex: Female : 1975 Arrival Date: 11/12/2024 Time: 17:39 Bed 6 Private MD: Diagnosis: Acute bronchitis, unspecified;Essential (primary) hypertension Presentation: 11/12 17:47 Chief complaint: Patient states: Cough, STEPHEN, fatigue, body aches for 10 days. + nausea ll1 with no appetite. Out of metoprolol for over a year. Coronavirus screen: Client denies travel out of the [place] in the last 14 days. congestion, cough unrelated to allergies, fatigue, headache. Ebola Screen: Patient denies travel to an Ebola-affected area in the 21 days before illness onset. Initial Sepsis Screen: Does the patient meet any 2 criteria? No. Patient's initial sepsis screen is negative. Does the patient have a suspected source of infection? No. Patient's initial sepsis screen is negative. Risk Assessment: Do you want to hurt yourself or someone else? Patient reports no desire to harm self or others. Onset of symptoms was November 02, 2024. 17:47 Method Of Arrival: Ambulatory ll1 17:47 Acuity: RAKEL 3 ll1 Triage Assessment: 17:50 General: Appears uncomfortable, Behavior is calm, cooperative, appropriate for age. ll1 Pain: Complains of pain in head Pain currently is 6 out of 10 on a pain scale. Quality of pain is described as aching. Neuro: Reports headache. Respiratory: Reports cough that is. GI: Reports nausea. STUDENT ADMISSIONS CLERK: 21:21 Not cp4 Historical: - Allergies: 17:49 No Known Allergies; ll1 - PMHx: 17:49 Hypertensive disorder; ll1 - PSHx: 17:49 section; ll1 - Immunization history:: Adult Immunizations up to date. - Infectious Disease History:: Denies. - Social history:: Smoking status: Patient reports the use of cigarette tobacco products, smokes one-half pack cigarettes per day. Screenin:08 [facility] ED Fall Risk Assessment (Adult) History of falling in the last 3 months, me1 including since admission No falls in past 3 months (0 pts) Confusion or Disorientation No (0 pts) Intoxicated or Sedated No (0 pts) Impaired Gait No (0 pts) Mobility Assist Device Used No (0 pt) Altered Elimination No (0 pt) Score/Fall Risk Level 0 - 2 = Low Risk Maintained a safe environment, Provided non-skid footwear, Hourly rounding (assess needs \T\ fall precautionary measures) done. Abuse screen: Denies threats or abuse. Nutritional screening: No deficits noted. Tuberculosis screening: No symptoms or risk factors identified. Assessment: 18:08 General: Appears in no apparent distress. ill, well groomed, well developed, well me1 nourished, Behavior is calm, cooperative, appropriate for age, Reports Cough, STEPHEN, fatigue, body aches for 10 days. + nausea with no appetite. Out of metoprolol for over a year. Pain:. Pain: Complains of pain in head Pain does not radiate. Pain currently is 3 out of 10 on a pain scale. Quality of pain is described as aching, Pain began gradually, Is continuous. Neuro: Level of Consciousness is awake, alert, obeys commands, Oriented to person, place, time. Neuro: Reports headache. Cardiovascular: Patient's skin is warm and dry. Respiratory: Reports cough that is persistent Airway is patent Respiratory effort is even, unlabored, Respiratory pattern is regular, symmetrical. GI: Abdomen is non-distended, Bowel sounds present X 4 quads. Reports anorexia, nausea. : No signs and/or symptoms were reported regarding the genitourinary system. EENT: Reports nasal congestion. Derm: Skin is intact, is healthy with good turgor, Skin is pink, warm \T\ dry. Musculoskeletal: No signs and/or symptoms reported regarding the musculoskeletal system. Vital Signs: 17:47 BP 208 / 131; Pulse 106; Resp 18; Temp 97.3; Pulse Ox 96% on R/A; Weight 68.04 kg; ll1 Height 4 ft. 9 in. ; Pain 6/10; 18:47 BP 179 / 104; Pulse 105; Resp 18; Pulse Ox 96% ; me1 21:20 BP 164 / 99; Pulse 98; Resp 18; Pulse Ox 97% ; cp4 17:47 Body Mass Index 32.46 (68.04 kg, 144.78 cm) ll1 17:47 Pain Scale: Adult ll1 ED Course: 17:41 Patient arrived in ED. im 17:42 [facility]C [facility] kb 17:42 Bert Leahy MD is Attending Physician. kb 17:47 Arm band placed on. ll1 17:49 Triage completed. ll1 17:53 Viji Castelan, RN is Primary Nurse. me1 17:53 Patient placed in an exam room, on a stretcher. jl7 18:04 Strep Sent. me1 18:04 SARS-COV-2 Antigen Rapid Sent. me1 18:04 Flu Sent. me1 18:04 COVID swab sent to lab. Flu and/or RSV swab sent to lab. Strep swab sent to lab. me1 18:08 Patient has correct armband on for positive identification. Bed in low position. Call va1 light in reach. Side rails up X2. Provided Education on: POC. Verbalized understanding.. Client placed on continuous cardiac and pulse oximetry monitoring. NIBP monitoring applied. Pulse ox on. NIBP on. 18:08 No provider procedures requiring assistance completed. me1 18:13 Chest Single View XRAY In Process Unspecified. EDMS 21:20 Patient did not have IV access during this emergency room visit. cp4 Administered Medications: 18:04 Drug: Metoprolol PO 50 mg PO once Route: PO; me1 18:47 Follow up: BP 179 / 104; Pulse 105 bpm; Resp 18 bpm; Pulse Ox 96% ; Response: No me1 adverse reaction; Blood pressure is lowered 18:04 Drug: Albuterol Inhalation 2.5 mg Inhalation once Route: Inhalation; me1 18:41 Follow up: Response: No adverse reaction; Wheezing diminished me1 18:04 Drug: Ipratropium Inhalation Aerosol 0.5 mg Inhalation once Route: Inhalation; me1 18:41 Follow up: Response: No adverse reaction; Wheezing diminished me1 18:43 Drug: predniSONE PO 40 mg PO once Route: PO; me1 21:13 Follow up: Response: No adverse reaction cp4 21:13 Drug: Tussionex Pennkinetic ER PO Suspension 5 ml PO once Route: PO; cp4 21:14 Follow up: Response: No adverse reaction cp4 Medication: 18:08 VIS not applicable for this client. me1 Outcome: 19:47 Discharge ordered by . kb 21:20 Discharged to home ambulatory, cp4 21:20 Condition: stable 21:20 Discharge instructions given to patient, family, Instructed on discharge instructions, follow up and referral plans. medication usage, Demonstrated understanding of instructions, follow-up care, medications, Prescriptions given X 4, 21:21 Patient left the ED. cp4 Signatures: Dispatcher [employer] EDMS Colin Leidy, SPEECH TEACHER-C SPEECH TEACHER-Berkley Long RN RN jl7 Sanjiv Gonzalez RN RN ll1 Kelsey Kwon Michelle, RN RN me1 Ofelia De La Cruz cp4 Corrections: (The following items were deleted from the chart) 17:54 17:47 Chief complaint: Patient states: Cough, STEPHEN, fatigue, body aches for 10 days. + me1 nausea with no appetite. ll1 17:55 17:47 Chief complaint: Patient states: Cough, STEPHEN, fatigue, body aches for 10 days. + ll1 nausea with no appetite. me1 18:08 17:47 Chief complaint: Patient states: Cough, STEPHEN, fatigue, body aches for 10 days. + me1 nausea with no appetite. Out of metoprolol for over a year ll1
[2024-11-12] MEDS ORDERED: HYDROCODONE/CHLORPHEN 5 ML/OSYR ONE (21:09)
[2024-11-12 21:33] VITALS: TEMP 97.3
[2024-11-12 21:36] VITALS: BP 164/99; O2SAT 97
== END 2024-11-12 21:21 | disposition home or self-care (01) ==
LOC: ER 17:39
DX: J20.9 Acute bronchitis, unspecified (principal); I10 Essential (primary) hypertension; Z11.52 Encounter for screening for COVID-19; F17.210 Nicotine dependence, cigarettes, uncomplicated
CPT/HCPCS: 36415; 71045; 87070; 87081; 87804; 87811; J7512; J7613; J7644

== ENCOUNTER 2025-01-11 17:02 | Emergency (ER) | payer SELFPAY ==
--- OUTSIDE RECORDS SUMMARY | 2025-01-11 17:06 | XMS REPORT | Continuity of Care Document ---
Author Name Unknown Address [address] [facility] [address] [place] [address] Organization [facility] [place] Address [address] [facility] [address] [place] [address] Care Team Providers Care [place] [employer] Name Role Phone OFE RICHARDSON Primary Care Physician Khloe PERRY Attending Clinician Unavailable DRU FRAUSTO Attending Clinician Unavailab Dru Stiles MD Attending Clinician [phone] OLGA DUGGAN Attending Clinician Unavailable OTHER, ENTER NAME IN NOTES Attending Clinician U Re Tello PA-C Attending Clinician [phone] RE DANIELS Attending Clinician Unavailable Doctor Unassigned, Zebulon Attending Clinician U ryan PERRY Admitting Clinician [...] Mixed Anxiety and Depressive Disorder Problem Active 12-22 00:00: 00 [facility] Tobacco dependence syndrome Tobacco Dependence Syndrome Problem Active 12-22 00:00: 00 [facility] Hypertensi ve disorder Hypertensi ve Disorder Problem Active 12-22 00:00: 00 [place] [facility] Allergic rhinitis Allergic Rhinitis Problem Active 12-22 00:00: 00 [place] [facility] Vitamin D deficiency Vitamin D Deficiency Problem Active 12-21 00:00: 00 [place] [facility] Prediabete s Prediabete s Problem Active 12-21 00:00: 00 [place] [facility] Allergies, Adverse Reactions, Alerts Allergy Name Allergy Type Status Severity Reaction(s) Onset Date Inactive Date Treating Clinician Comments Source NO KNOWN ALLERGIE S Drug Class Active [facility] Mold Allergy to substanc e Active [place] [facility] VENOM-WA SP Allergy to substanc e Active [place] [facility] ANIMAL DANDER Allergy to substanc e Active [place] [facility] House Dust Allergy to substanc e Active [place] [facility] INSECT VENOM Allergy to substanc e Active [place] [facility] Latex Allergy to substanc e Active [place] [facility] Social History Social Habit Start Date Stop Date Quantity Comments Source History of tobacco use Cigarette Smoker [facility] Exposure to SARS-CoV-2 (event) 2022-12-01 00:00:00 2022-12-11 14:29:00 Not sure [facility] Tobacco use and exposure 2022-12-11 00:00:00 2022-12-11 00:00:00 Smokeless tobacco non-user [facility] Sex Assigned At 1975 00:00:00 1975 00:00:00 [facility] Smoking Status Start Date Stop Date Source Heavy Tobacco Smoker [facility] Tobacco smoking consumption unknown [facility] Smokes tobacco daily 2022-12-11 00:00:00 [facility] Medications Ordered Medication Name Filled Medication Name Start Date Stop Date Current Medication? Ordering Clinician Indication Dosage Frequency Signature (SIG) Comments Components Source metoprolol succinate XL 25 mg 24 hr tablet 2023-0 3-10 00:00: 00 Yes 25mg Take 1 tablet by mouth in the morning. [facility] cholecalcif spike (vitamin D3) 125 mcg (5,000 [...] with meals. for vitamin D deficiency . [facility] fluticasone propionate 50 mcg/actuati on nasal spray,suspe nsion [place] 2 sprays each nostril every morning as needed for allergies and cough fluticasone propionate 50 mcg/actuati on nasal spray,suspe nsion [place] 2 sprays each nostril every morning as needed for allergies and cough No fluticason e propionate 50 mcg/actuat ion nasal spray,susp ension [place] 2 sprays each nostril every morning as needed for allergies and cough [facility] losartan 50 mg-hydrochl orothiazide [...] in the morning. for blood pressure [facility] metoprolol succinate ER 50 [...] every day by oral route at bedtime. [facility] Wellbutrin SR 150 mg [...] a day by oral route. for anxiety [facility] albuterol sulfate HFA 90 mcg/actuati on aerosol inhaler Inhale 2 puffs every 4 hours by inhalation route as needed. albuterol sulfate HFA 90 mcg/actuati on aerosol inhaler Inhale 2 puffs every 4 hours by inhalation route as needed. No 2puff(s ) Q4H albuterol sulfate HFA 90 mcg/actuat ion aerosol inhaler Inhale 2 puffs every 4 hours by inhalation route as needed. [facility] amlodipine 5 mg tablet Take 1 tablet every day by oral route as directed. amlodipine 5 mg tablet Take 1 tablet every day by oral route as directed. No 1 Q1D amlodipine 5 mg tablet Take 1 tablet every day by oral route as directed. [facility] aspirin 81 mg capsule Take 1 capsule every day by oral route. aspirin 81 mg capsule Take 1 capsule every day by oral route. No 1capsul e(s) Q1D aspirin 81 mg capsule Take 1 capsule every day by oral route. [facility] benzonatate 100 mg capsule take one capsule by mouth every 4-6 hours as needed for cough benzonatate 100 mg capsule take one capsule by mouth every 4-6 hours as needed for cough No benzonatat e 100 mg capsule take one capsule by mouth every 4-6 hours as needed for cough [facility] bupropion HCl SR 150 mg tablet,12 hr sustained-r elease TAKE 1 TABLET BY MOUTH TWICE DAILY bupropion HCl SR 150 mg tablet,12 hr sustained-r elease TAKE 1 TABLET BY MOUTH TWICE DAILY No bupropion HCl SR 150 mg tablet,12 hr sustained- release TAKE 1 TABLET BY MOUTH TWICE DAILY [facility] cetirizine 10 mg tablet TAKE 1 TABLET BY MOUTH ONCE DAILY AT BEDTIME cetirizine 10 mg tablet TAKE 1 TABLET BY MOUTH ONCE DAILY AT BEDTIME No cetirizine 10 mg tablet TAKE 1 TABLET BY MOUTH ONCE DAILY AT BEDTIME [facility] cholecalcif spike (vitamin D3) 125 mcg (5,000 unit) capsule TAKE 2 CAPSULES BY MOUTH ONCE DAILY WITH MEALS cholecalcif spike (vitamin D3) 125 mcg (5,000 unit) capsule TAKE 2 CAPSULES BY MOUTH ONCE DAILY WITH MEALS No cholecalci ferol (vitamin D3) 125 mcg (5,000 unit) capsule TAKE 2 CAPSULES BY MOUTH ONCE DAILY WITH MEALS [facility] doxycycline hyclate 100 mg tablet Take 1 tablet twice a day by oral route as directed for 7 days. doxycycline hyclate 100 mg tablet Take 1 tablet twice a day by oral route as directed for 7 days. No 1 BID doxycyclin e hyclate 100 mg tablet Take 1 tablet twice a day by oral route as directed for 7 days. [facility] fluticasone propionate 50 mcg/actuati on nasal [...] THE MORNING NEEDED FOR ALLERGIES AND COUGH [facility] ipratropium 0.5 mg-albutero l 3 mg [...] by nebulizati on route 1 time only [facility] losartan 50 mg-hydrochl orothiazide 12.5 mg tablet TAKE 1 TABLET BY MOUTH ONCE DAILY IN THE MORNING losartan 50 mg-hydrochl orothiazide 12.5 mg tablet TAKE 1 TABLET BY MOUTH ONCE DAILY IN THE MORNING No losartan 50 mg-hydroch lorothiazi de 12.5 mg tablet TAKE 1 TABLET BY MOUTH ONCE DAILY IN THE MORNING [facility] metoprolol succinate ER 50 mg tablet,exte nded release 24 hr TAKE 1 TABLET BY MOUTH ONCE DAILY AT BEDTIME metoprolol succinate ER 50 mg tablet,exte nded release 24 hr TAKE 1 TABLET BY MOUTH ONCE DAILY AT BEDTIME No metoprolol succinate ER 50 mg tablet,ext ended release 24 hr TAKE 1 TABLET BY MOUTH ONCE DAILY AT BEDTIME [facility] prednisone 5 mg tablet Take 1 tablet every day by oral route as needed. decrease inflammatio n prednisone 5 mg tablet Take 1 tablet every day by oral route as needed. decrease inflammatio n No 1 Q1D prednisone 5 mg tablet Take 1 tablet every day by oral route as needed. decrease inflammati on [facility] aspirin 81 mg capsule Take 1 capsule every day by oral route. aspirin 81 mg capsule Take 1 capsule every day by oral route. No 1capsul e(s) Q1D aspirin 81 mg capsule Take 1 capsule every day by oral route. [facility] doxycycline hyclate 100 mg capsule TAKE 1 CAPSULE BY MOUTH TWICE DAILY FOR 7 DAYS doxycycline hyclate 100 mg capsule TAKE 1 CAPSULE BY MOUTH TWICE DAILY FOR 7 DAYS No doxycyclin e hyclate 100 mg capsule TAKE 1 CAPSULE BY MOUTH TWICE DAILY FOR 7 DAYS [facility] Wellbutrin SR 150 mg tablet, 12 [...] then increase to 1 tablet twice daily. [facility] aspirin 81 mg capsule Take 1 capsule every day by oral route. aspirin 81 mg capsule Take 1 capsule every day by oral route. No 1capsul e(s) Q1D aspirin 81 mg capsule Take 1 capsule every day by oral route. [facility] cetirizine 10 mg tablet Take 1 tablet every day by oral route at bedtime. cetirizine 10 mg tablet Take 1 tablet every day by oral route at bedtime. No 1 Q1D cetirizine 10 mg tablet Take 1 tablet every day by oral route at bedtime. [facility] Vital Signs Vital Name Observation Time Observation Value Comments S ource BP Diastolic 2023-01-24 00:00:00 100 mm[Hg] [facility] Height 2023-01-24 00:00:00 58 [in_i] [facility] BMI (Body Mass Index) 2023-01-24 00:00:00 32 kg/m2 [facility] BP Systolic 2023-01-24 00:00:00 161 mm[Hg] [facility] kevin [facility] Body Weight 2023-01-24 00:00:00 2452 [oz_av] [facility] BP Diastolic 2022-12-22 00:00:00 98 mm[Hg] [facility] Height 2022-12-22 00:00:00 58 [in_i] [facility] BMI (Body Mass Index) 2022-12-22 00:00:00 32.2 kg/m2 [facility] BP Systolic 2022-12-22 00:00:00 157 mm[Hg] [facility] Body Weight 2022-12-22 00:00:00 2467 [oz_av] Addi [facility] Systolic blood pressure 2022-12-11 19:48:00 183 mm[Hg] [facility] Diastolic blood pressure 2022-12-11 19:48:00 102 mm[Hg] [facility] Heart rate 2022-12-11 19:48:00 82 /min [facility] Respiratory rate 2022-12-11 19:48:00 18 /min [facility] Body height 2022-12-11 19:48:00 147.3 cm [facility] Body weight 2022-12-11 19:48:00 68.04 kg [facility] BMI 2022-12-11 19:48:00 31.35 kg/m2 [facility] BP Diastolic 2022-12-01 00:00:00 130 mm[Hg] [facility] agorda [facility] Height 2022-12-01 00:00:00 58 [in_i] [place] [facility] BMI (Body Mass Index) 2022-12-01 00:00:00 31.4 kg/m2 [place] [facility] BP Systolic 2022-12-01 00:00:00 186 mm[Hg] [facility] kevin [facility] Body Weight 2022-12-01 00:00:00 2405 [oz_av] Addi tagord[facility] Procedures Procedure Date / Time Performed Performing Clinicia n Source CONSENT/REFUSAL FOR DIAGNOSIS AND TREATMENT 2022-11-17 16:10:03 Doctor Unassigned, Zebulon [facility] Caesarean Section 2007-10-01 00:00:00 [facility] Tubal Ligation 2007-10-01 00:00:00 [facility] Plan of Care Planned Activity Planned Date Details Comments Source Diagnostic Test Pending 2023-01-24 00:00:00 influenza virus A + B and SARS CoV 2 (COVID-19) and RSV RNA panel, EUNICE+probe, respiratory specimen [code = influenza virus A + B and SARS CoV 2 (COVID-19) and RSV RNA panel, EUNICE+probe, respiratory specimen] [place] [facility] Encounters Start Date/Time End Date/Time Encounter Type Admission Type Attending Clinicians Care Facility Care Department Encounter ID Source 2023-04-15 00:00:00 2023-04-15 00:00:00 Outpatient ALICE_JAVIER CHILEL [facility] [id number] [facility] 2023-03-11 00:00:00 2023-03-11 00:00:00 Outpatient ALICE_JAVIER IE [facility] [id number] [facility] 2023-03-05 14:30:00 2023-03-05 14:30:00 Outpatient DRU DOUGHERTY [facility] [id number] [facility] 2023-02-04 00:00:00 2023-02-04 00:00:00 Outpatient GILBERT_KAT IE [facility] [id number] [facility] 2023-01-24 00:00:00 2023-01-24 00:00:00 Outpatient GILBERT_KAT IE [facility] [id number] [facility] 2023-01-24 00:00:00 2023-01-24 00:00:00 Angel Moon APRN-SIDE LASTER TACK-C: [address] [place] [address] , Ph. [facility] [id number] [facility] 2022-12-26 00:00:00 2022-12-26 00:00:00 Outpatient GILBERT_KAT IE [facility] [id number] [facility] 2022-12-22 00:00:00 2022-12-22 00:00:00 Outpatient GILBERT_KAT IE [facility] [id number] [facility] 2022-12-22 00:00:00 2022-12-22 00:00:00 Vandana Kwong, S[employer] TACK: [address] [place] [address] , Ph. [facility] [id number] [facility] 2022-12-21 00:00:00 2022-12-21 00:00:00 Outpatient GILBERT_KAT IE [facility] [id number] [facility] 2022-12-20 00:00:00 2022-12-20 00:00:00 Outpatient GILBERT_KAT IE [facility] [id number] [facility] 2022-12-11 14:45:00 2022-12-11 15:03:00 Outpatient DRU DOUGHERTY [facility] [id number] [facility] 2022-12-11 14:45:00 2022-12-11 15:03:00 Office Visit Dru Frausto [facility] MOI CEDEÑO PROFESSIO [facility] [id number] [facility] 2022-12-04 09:00:00 2022-12-04 09:00:00 Outpatient OLGA VALENCIA [facility] [id number] [facility] 2022-12-02 00:00:00 2022-12-02 00:00:00 Outpatient GILBERT_KAT IE [facility] [id number] [facility] 2022-12-01 00:00:00 2022-12-01 00:00:00 Outpatient GILBERT_KAT IE [place] [id number] [facility] 2022-12-01 00:00:00 2022-12-01 00:00:00 Vandana Kwong, SIDE [employer] TACK: [address] [place] [address] , Ph. [facility] [id number] [facility] 2022-11-30 00:00:00 2022-11-30 00:00:00 Outpatient GILBERT_KAT IE [facility] [id number] [facility] 2022-11-27 18:55:00 2022-11-27 18:55:00 Outpatient UR OTHER, [facility] [id number] [facility] 2022-11-17 10:20:00 2022-11-17 10:40:00 Office Visit Re Daniels [facility] [id number] [facility] 2022-11-17 10:20:00 2022-11-17 10:20:00 Outpatient R RE DANIELS LEAH [facility] [id number] [facility] 2022-11-17 00:00:00 2022-11-17 00:00:00 Orders Only Doctor Unassigned, Zebulon [facility] [id number] [facility] Results Test Description Test Time Test Comments Results Result Co mments Source [facility]
[2025-01-11 19:31] LABS: Absolute Basophils 0.1 K/uL (0-0.5); Absolute Eosinophils 0.2 K/uL (0-0.5); Absolute Lymphocytes (CBC) 2.3 K/uL (0.7-4.9); Absolute Monocytes 1.4 K/uL (0.1-1.3); Absolute Neutrophil 14.1 K/uL (1.8-8.0); Basophils % 0.5 % (0-1.3); Eosinophils % 0.8 % (0-4.4); Hematocrit 40.7 % (36.0-45.0); Hemoglobin 13.9 g/dL (12.0-15.0); Lymphocytes % 12.8 % (15.3-44.8); MCH 27.9 pg (27.0-35.0); MCHC 34.1 g/dL (32.0-36.0); MCV 81.6 fL (80-100); MPV 6.9 fL (7.6-11.3); Monocytes % 7.5 % (3.3-12.3); Neutrophils % 78.4 % (41.7-73.7); Platelets 464 thou/uL (152-406); RBC Red Blood Cell Count 4.98 M/uL (3.86-4.86); Red Cell Distribution Width 16.5 % (12.1-15.2)
--- NOTE | 2025-01-11 19:44 | RAD REPORT ---
EXAMINATION: ONE VIEW CHEST XR CLINICAL INDICATION: Female, 49 years old.,CHEST PAIN TECHNIQUE: Frontal chest projection is submitted. Examination is limited by patient positioning and t echnique. COMPARISON: 11/12/2024 FINDINGS: The lungs are well inflated and clear. No pneumothorax or sizable effusion. The heart is normal in s ize. Mediastinal contours are unremarkable. IMPRESSION: No acute intrathoracic abnormalities.
--- NOTE | 2025-01-11 19:45 | RAD REPORT ---
EXAMINATION: XR RIGHT SHOUDLER CLINICAL INDICATION: Female, 49 years old. PAIN RIGHT TECHNIQUE:Two view radiograph of the right shoulder were obtained. COMPARISON: No prior exam. FINDINGS: No acute bone or joint abnormality detected. Punctate radiodensities adjacent to the greate r tuberosity, could relate to sequelae of calcific tendinitis. IMPRESSION: No acute osseous abnormalities. Probable sequelae of calcific tendinitis as above.
[2025-01-11 19:51] LABS: Anion Gap 7.4 mEq/L (5.0-15.0); Troponin High Sensitivity 6.9 pg/mL (<58.9)
[2025-01-11 19:54] LABS: Potassium 4.4 mEq/L (3.5-5.1)
[2025-01-11] MEDS ORDERED: HYDROCODONE/APAP 5/325 MG TAB ONE (20:35)
[2025-01-11] MEDS ORDERED: KETOROLAC 30 MG/ML INJ ONE (20:35)
[2025-01-11 22:05] LABS: Specific Gravity 1.028 (1.005-1.030); Urine Bacteria <20 /HPF (<20); Urine Bilirubin NEGATIVE (Negative); Urine Blood 2+ (Negative); Urine Clarity Extremely Turbid (Clear); Urine Color Yellow (Yellow); Urine Culture Reflex Order NOT NEEDED; Urine Glucose NEGATIVE (Negative); Urine Ketones NEGATIVE (Negative); Urine Microscopic Reflex YN ORDER UMIC; Urine Mucus 1+ /HPF (None Seen); Urine Nitrite NEGATIVE (Negative); Urine Protein 1+ (Negative); Urine RBC <5 /HPF (None Seen); Urine Urobilinogen 1+ (Normal); Urine WBC <5 /HPF (<5)
--- NOTE | 2025-01-11 22:11 | ER ---
Nurse's Notes [facility] Name: Cynthia López Age: 49 yrs Sex: Female : 1975 Arrival Date: 01/11/2025 Time: 17:02 Bed 20 Private MD: Diagnosis: Other acute sinusitis Presentation: 01/11 17:18 Chief complaint: Patient states: right scapular pain radiating to right shoulder, right aa5 side of chest, and right arm. Pt reports pain began Sunday "after picking up my granddaughter". 17:18 Coronavirus screen: At this time, the client does not indicate any symptoms associated aa5 with coronavirus-19. Ebola Screen: Patient denies travel to an Ebola-affected area in the 21 days before illness onset. Initial Sepsis Screen: Does the patient meet any 2 criteria? Does the patient have a suspected source of infection? No. Patient's initial sepsis screen is negative. Risk Assessment: Do you want to hurt yourself or someone else? Patient reports no desire to harm self or others. Onset of symptoms was December 2024. 17:18 Acuity: RAKEL 3 aa5 17:18 Method Of Arrival: Ambulatory aa5 Historical: - Allergies: 17:18 No Known Allergies; aa5 - Home Meds: 17:18 metoprolol tartrate 50 mg oral tablet daily [Active]; aa5 - PMHx: 17:18 Hypertensive disorder; aa5 - PSHx: 17:18 section; aa5 - Immunization history:: Adult Immunizations unknown. - Infectious Disease History:: Denies. - Social history:: Smoking status: Patient reports the use of cigarette tobacco products. Screenin:[address] [facility] ED Fall Risk Assessment (Adult) History of falling in the last 3 months, rg5 including since admission No falls in past 3 months (0 pts) Confusion or Disorientation No (0 pts) Intoxicated or Sedated No (0 pts) Impaired Gait No (0 pts) Mobility Assist Device Used No (0 pt) Altered Elimination No (0 pt) Score/Fall Risk Level 0 - 2 = Low Risk Oriented to surroundings, Maintained a safe environment, Provided non-skid footwear. Abuse screen: Denies threats or abuse. Nutritional screening: No deficits noted. Tuberculosis screening: No symptoms or risk factors identified. Assessment: 20:15 General: Appears uncomfortable, Behavior is calm, cooperative, appropriate for age. rg5 20:15 Pain: Complains of pain in chest Pain radiates to right lateral posterior chest Quality rg5 of pain is described as aching, Pain began 2-3 days ago. 20:15 Neuro: Level of Consciousness is awake, alert, obeys commands, Oriented to person, rg5 place, time. Cardiovascular: Reports chest pain. Respiratory: Respiratory effort is even, unlabored, Respiratory pattern is Breath sounds are clear. GI: Abdomen is round non-distended. : No signs and/or symptoms were reported regarding the genitourinary system. EENT: No deficits noted. Derm: Skin is intact, Skin is dry, Skin is normal, Skin temperature is warm. Musculoskeletal: Circulation, motion, and sensation intact. Range of motion:. 21:25 Reassessment: Patient and/or family updated on plan of care and expected duration. Pain rg5 level reassessed. Patient is alert, oriented x 3, equal unlabored respirations, skin warm/dry/pink. 22:15 Reassessment: Patient and/or family updated on plan of care and expected duration. Pain rg5 level reassessed. Patient is alert, oriented x 3, equal unlabored respirations, skin warm/dry/pink. Patient states feeling better. Patient states symptoms have improved. Vital Signs: 17:18 BP 191 / 119; Pulse 90; Resp 18 S; Temp 98.9(O); Pulse Ox 96% on R/A; Weight 68.04 kg aa5 (R); Height 4 ft. 9 in. (R); 20:15 BP 177 / 100; Pulse 83; Resp 18; Pulse Ox 99% ; Pain 10/10; rg5 21:40 BP 156 / 96; Pulse 75; Resp 18; Pulse Ox 97% ; rg5 17:18 Body Mass Index 32.46 (68.04 kg, 144.78 cm) aa5 20:15 Pain Scale: Adult rg5 ED Course: 17:07 Patient arrived in ED. cj3 17:16 Andrews Ramírez FNP-C [facility]. dr5 17:16 Salty Man MD is Attending Physician. dr5 17:18 Arm band placed on. aa5 17:20 Triage completed. aa5 19:03 XRAY Chest (1 view) In Process Unspecified. EDMS 19:03 Shoulder Right (2 View) XRAY In Process Unspecified. EDMS 19:21 José Miguel Rick, RN is Primary Nurse. rg5 19:47 EKG done, by signal technician. reviewed by Andrews ZIMMER. oh1 20:15 Patient has correct armband on for positive identification. Provided Education on:. rg5 Client placed on continuous cardiac and pulse oximetry monitoring. NIBP monitoring applied. vehicle monitor technician on. Pulse ox on. Door closed. Noise minimized. 20:15 No provider procedures requiring assistance completed. Inserted saline lock: 20 gauge rg5 in left antecubital area, using aseptic technique. Blood collected. Flushed with 10 mL NS. Patient maintains SpO2 saturation greater than 95% on room air. 22:36 IV discontinued, bleeding controlled, No redness/swelling at site. Pressure dressing rg5 applied. Administered Medications: 20:40 Drug: Ketorolac IVP 15 mg IVP once Route: IVP; Site: left antecubital; rg5 22:35 Follow up: Response: No adverse reaction; Pain is decreased rg5 20:40 Drug: HYDROcodone-acetaminophen PO 5 mg-325 mg 2 tabs PO once Route: PO; rg5 22:35 Follow up: Response: No adverse reaction rg5 Medication: 20:15 VIS not applicable for this client. rg5 Outcome: 22:11 Discharge ordered by MD. dr5 22:37 Discharged to home ambulatory, rg5 22:37 Condition: stable 22:37 Discharge instructions given to patient, Instructed on discharge instructions, Demonstrated understanding of instructions, follow-up care, medications, Prescriptions given X 3, 22:38 Patient left the ED. rg5 Signatures: Dispatcher [employer] EDMS Hilda Reagan, RN RN aa5 José Miguel Rick, RN RN rg5 Екатерина Caban oh1 Andrews Ramírez FNP-C FNP-Cdr5 Makayla Quintanilla 3 Corrections: (The following items were deleted from the chart) 17:20 17:18 Chief complaint: Patient states: right scapular pain radiating to right shoulder, aa5 right side of chest, and right arm. aa5 17:20 17:18 Pulse 95bpm; Resp 18bpm; Spontaneous; Pulse Ox 96% RA; 68.04 kg Reported; Height aa5 4 ft. 9 in. Reported; BMI: 32.4; aa5
--- NOTE | 2025-01-11 22:11 | EDPHYS ---
Physician Documentation [facility] Name: Cynthia López Age: 49 yrs Sex: Female : 1975 Arrival Date: 01/11/2025 Time: 17:02 Bed 20 Private MD: ED Physician Salty Man HPI: 01/11 18:22 This 49 yrs old Female presents to ER via Ambulatory with complaints of Chest dr5 Pain, Back Pain, Burning Sensation. 18:22 Onset: The symptoms/episode began/occurred 4 day(s) ago. Patient is a 49 year old dr5 female with hx of HTN coming in with right shoulder, right upper chest pain after picking up her daughter since Sunday. Patient denies shortness of breath, abdominal pain, nausea, vomiting, diarrhe, or fever.. Historical: - Allergies: 17:18 No Known Allergies; aa5 - Home Meds: 17:18 metoprolol tartrate 50 mg oral tablet daily [Active]; aa5 - PMHx: 17:18 Hypertensive disorder; aa5 - PSHx: 17:18 section; aa5 - Immunization history:: Adult Immunizations unknown. - Infectious Disease History:: Denies. - Social history:: Smoking status: Patient reports the use of cigarette tobacco products. ROS: 18:23 Constitutional: as per hpi dr5 Exam: 01/12 01:15 Constitutional: This is a well developed, well nourished patient who is awake, alert, dr5 and in no acute distress. Head/Face: Normocephalic, atraumatic. Eyes: Pupils equal round and reactive to light, extra-ocular motions intact. Lids and lashes normal. Conjunctiva and sclera are non-icteric and not injected. Cornea within normal limits. Periorbital areas with no swelling, redness, or edema. Neck: Trachea midline, no thyromegaly or masses palpated, and no cervical lymphadenopathy. Supple, full range of motion without nuchal rigidity, or vertebral point tenderness. No Meningismus. Chest/axilla: Normal chest wall appearance and motion. Nontender with no deformity. No lesions are appreciated. Cardiovascular: Regular rate and rhythm with a normal S1 and S2. Normal PMI, no JVD. No pulse deficits. Respiratory: Lungs have equal breath sounds bilaterally, clear to auscultation. No rales, rhonchi or wheezes noted. No increased work of breathing, no retractions or nasal flaring. Abdomen/GI: Soft, non-tender, non-distended Back: No spinal tenderness. No costovertebral tenderness. Full range of motion. Skin: Warm, dry with normal turgor. Normal color with no rashes, no lesions, and no evidence of cellulitis. MS/ Extremity: Pulses equal, no cyanosis. Neurovascular intact. Full, normal range of motion. Neuro: Awake and alert, GCS 15, oriented to person, place, time, and situation. Cranial nerves II-XII grossly intact. Motor strength 5/5 in all extremities. Sensory grossly intact. Cerebellar exam normal. Normal gait. Vital Signs: 01/11 17:18 BP 191 / 119; Pulse 90; Resp 18 S; Temp 98.9(O); Pulse Ox 96% on R/A; Weight 68.04 kg aa5 (R); Height 4 ft. 9 in. (R); 20:15 BP 177 / 100; Pulse 83; Resp 18; Pulse Ox 99% ; Pain 10/10; rg5 21:40 BP 156 / 96; Pulse 75; Resp 18; Pulse Ox 97% ; rg5 17:18 Body Mass Index 32.46 (68.04 kg, 144.78 cm) aa5 20:15 Pain Scale: Adult rg5 MDM: 17:31 Medical Screening Exam initiated dr5 01/12 01:15 Differential diagnosis: viral Infection, bacterial infection, URI, bronchitis, dr5 pneumonia. Data reviewed: vital signs, nurses notes. Consideration of Admission/Observation Escalation and admission considered given elevated white blood cell count.. I considered the following discharge prescriptions or medication management in the emergency department Medications were administered in the Emergency Department. See MAR. Historians other than the Patient: Daughter/Son: Daughter. Care significantly affected by the following chronic conditions: Hypertension. Care significantly affected by the following Social Determinants of Health: Poor access to healthcare and/or lack of insurance, Poor access to transportation, Problems related to employment. Counseling: I had a detailed discussion with the patient and/or guardian regarding the historical points, exam findings, and any diagnostic results supporting the discharge/admit diagnosis, the presence of at least one elevated blood pressure reading (>120/80) during this emergency department visit, lab results, radiology results, the need for outpatient follow up, for definitive care, a family practitioner, to return to the emergency department if symptoms worsen or persist or if there are any questions or concerns that arise at home. Medication response: [place]. Response to treatment: the patient's symptoms have markedly improved after treatment. ED course: Patient reports she is feeling much better. Patient denies chest pain, shortness of breath, abdominal pain, dysuria. Attributed elevated white blood cell count due to patient smoking 1 pack a day. Will cover patient with azithromycin and Augmentin for sinusitis as well as possible developing pneumonia. Labs and diagnostics printed out and given to patient to take to primary care doctor tomorrow. All questions answered. Strict ER precautions given. Patient reports that she is feeling much better on discharge. Explained that she had tendinitis in right shoulder and to alternate Tylenol Motrin as needed for pain.. 01/11 17:22 Order name: Basic Metabolic Panel; Complete Time: 19:58 [facility] 01/11 17:22 Order name: CBC with Diff; Complete Time: 19:35 [facility] 01/11 17:22 Order name: NT PRO-BNP; Complete Time: 19:58 [facility] 01/11 17:22 Order name: Troponin HS; Complete Time: 19:58 [facility] 01/11 20:13 Order name: Urinalysis w/ reflexes; Complete Time: 22:08 [facility] 01/11 17:22 Order name: XRAY Chest (1 view); Complete Time: 19:49 [facility] 01/11 17:22 Order name: Shoulder Right (2 View) XRAY; Complete Time: 19:49 [facility] 01/11 17:22 Order name: Cardiac monitoring; Complete Time: 20:05 [facility] 01/11 17:22 Order name: EKG - Nurse/Tech; Complete Time: 19:48 [facility] 01/11 17:22 Order name: IV Saline Lock; Complete Time: 19:48 [facility] 01/11 17:22 Order name: Labs collected and sent; Complete Time: 20:05 [facility] 01/11 17:22 Order name: O2 Per Protocol; Complete Time: 20:05 [facility] 01/11 17:22 Order name: O2 Sat Monitoring; Complete Time: 20:05 [facility] EC/13 19:18 Rate is 91 beats/min. Rhythm is regular. QRS [place] is Normal. NH interval is normal at dr5 130 msec. QRS interval is normal at 76 msec. QT interval is normal at 370 msec. Administered Medications: 20:40 Drug: Ketorolac IVP 15 mg IVP once Route: IVP; Site: left antecubital; rg5 22:35 Follow up: Response: No adverse reaction; Pain is decreased rg5 20:40 Drug: HYDROcodone-acetaminophen PO 5 mg-325 mg 2 tabs PO once Route: PO; rg5 22:35 Follow up: Response: No adverse reaction rg5 Disposition: 01/12 10:56 Co-signature as Attending Physician, Salty Man MD I reviewed the patient's care rn provided by the Advanced Practice Provider and agree with the diagnosis and treatment plan. Disposition Summary: 01/11/25 22:11 Discharge Ordered Notes: Location: Home dr5 Condition: Stable dr5 Diagnosis - Other acute sinusitis dr5 Followup: dr5 - With: Emergency Department - When: As needed - Reason: Worsening of condition Followup: dr5 - With: Private Physician - When: 1 - 2 days - Reason: Recheck today's complaints, Continuance of care, Re-evaluation by your physician Discharge Instructions: - Discharge Summary Sheet dr5 - Sinusitis, Adult dr5 Forms: - Medication Reconciliation Form dr5 - Antibiotic Education dr5 - Patient Portal Instructions dr5 - Leadership Thank You Letter dr5 Prescriptions: - Augmentin 875-125 mg Oral Tablet - take 1 tablet ORAL route every 12 hours for 10 days; 20 tablet; Refills: 0, dr5 Product Selection Permitted - Cyclobenzaprine 10 mg Oral Tablet - take 1 tablet ORAL route every 8 hours As needed; 30 tablet; Refills: 0, dr5 Product Selection Permitted - Zithromax Z-Jonathan 250 mg Oral Tablet - take 1 tablet ORAL route as directed for 5 days Day 1 - take two (2) tablets dr5 one time. Day 2, 3, 4 , 5 take one (1) tablet once daily.; 6 tablet; Refills: 0, Product Selection Permitted Signatures: Dispatcher [employer] EDMS Salty Man MD MD rn Calderon, Audri, RN RN aa5 José Miguel Rick RN RN rg5 Andrews Ramírez, MESHA FRANCO-Cdr5 Corrections: (The following items were deleted from the chart) 01/11 17:22 17:22 Shoulder Right 2 View+RAD.RAD.[email or web address] ordered. EDAZ EDMS
[2025-01-11 22:44] VITALS: TEMP 98.9
[2025-01-11 22:47] VITALS: BP 156/96; O2SAT 97
--- NOTE | 2025-01-12 10:47 | EKG ---
Test Date: 2025-01-11 Test Time: 19:18:01 Inspector Balance Wheel Motion: RENATA MEASUREMENT RESULTS: Intervals: Rate: 91 TN: 130 QRSD: 76 QT: 370 QTc: 455 [place]: P: -20 TN: 130 QRS: -29 T: -14 INTERPRETIVE STATEMENTS: Normal sinus rhythm Normal ECG Compared to ECG 12/19/2022 19:55:25 Sinus tachycardia no longer present Right-axis deviation no longer present Myocardial infarct finding no longer present Electronically Signed On 01-12-25 10:46:42 CDT by Barber Jaimes
== END 2025-01-11 22:38 | disposition home or self-care (01) ==
LOC: ER 17:02
DX: J01.80 Other acute sinusitis (principal); M25.511 Pain in right shoulder; Z72.0 Tobacco use
CPT/HCPCS: 36415; 71045; 80048; 81001; 83880; 84484; 85025; 93005; 96374; 99285

== ENCOUNTER 2025-07-30 13:57 | Emergency (ER) | payer OTHER, SELFPAY ==
[2025-07-30] MEDS ORDERED: ACETAMINOPHEN 325 MG TABLET ONE (14:52)
--- NOTE | 2025-07-30 16:05 | EDPHYS ---
Physician Documentation [facility] Name: Cynthia López Age: 49 yrs Sex: Female : 1975 Arrival Date: 07/30/2025 Time: 13:57 Bed 5 Private MD: ED Physician Nery Cochran HPI: 07/30 14:54 This 49 yrs old Female presents to ER via Ambulatory with complaints of High sp3 Blood Pressure, Headache. 14:54 44-year-old female with history of hypertension presents to the ED with chief complaint sp3 headache and high blood pressure. Patient was seen yesterday at [facility] for similar symptoms where she obtained a CT scan of the head, chest x-ray, EKG and labs which they said were all normal subsequent to which she was discharged home. She states they did not give her pain medication only medication to lower her blood pressure. This morning she woke up with recurrent headache and found her blood pressure to be in the 180s systolically. It is when yesterday she presented with over 200 systolic. She currently takes metoprolol only for her high blood pressure and yesterday on discharge from [facility] they gave her 0.1 mg of clonidine as needed to take that she did not take secondary to her fears of dropping her blood pressure too much. She does endorse ongoing headache but denies neck pain, chest pain, shortness of breath, abdominal pain, vomiting, diarrhea, extremity numbness or tingling or pain, or any other signs or symptoms on ROS at this time.. Historical: - Allergies: 14:14 No Known Allergies; ap3 - Home Meds: 14:14 metoprolol tartrate 50 mg Oral tablet daily [Active]; ap3 - PMHx: 14:14 Hypertensive disorder; ap3 - PSHx: 14:14 section; ap3 - Immunization history:: Adult Immunizations unknown. - Infectious Disease History:: Denies. - Social history:: Smoking status: Patient reports the use of cigarette tobacco products, smokes one pack cigarettes per day. ROS: 15:00 Constitutional: Negative for fever, chills, and weight loss, Eyes: Negative for injury, sp3 pain, redness, and discharge, ENT: Negative for injury, pain, and discharge, Neck: Negative for injury, pain, and swelling, Respiratory: Negative for shortness of breath, cough, wheezing, and pleuritic chest pain, Abdomen/GI: Negative for abdominal pain, nausea, vomiting, diarrhea, and constipation, Back: Negative for injury and pain, MS/Extremity: Negative for injury and deformity, Skin: Negative for injury, rash, and discoloration, Psych: Negative for depression, anxiety, suicide ideation, homicidal ideation, and hallucinations, Allergy/Immunology: Negative for hives, rash, and allergies, Endocrine: Negative for neck swelling, polydipsia, polyuria, polyphagia, and marked weight changes, Hematologic/Lymphatic: Negative for swollen nodes, abnormal bleeding, and unusual bruising, 15:00 All other systems are negative, Exam: 15:00 Constitutional: This is a well developed, well nourished patient who is awake, alert, sp3 and in no acute distress. Head/Face: Normocephalic, atraumatic. Eyes: Pupils equal round and reactive to light, extra-ocular motions intact. Lids and lashes normal. Conjunctiva and sclera are non-icteric and not injected. Cornea within normal limits. Periorbital areas with no swelling, redness, or edema. ENT: Nares patent. No nasal discharge, no septal abnormalities noted. External auditory canals are clear. Oropharynx with no redness, swelling, or masses, exudates, or evidence of obstruction, uvula midline. Mucous membranes moist. Neck: Trachea midline, no thyromegaly or masses palpated, and no cervical lymphadenopathy. Supple, full range of motion without nuchal rigidity, or vertebral point tenderness. No Meningismus. Chest/axilla: Normal chest wall appearance and motion. Nontender with no deformity. No lesions are appreciated. Cardiovascular: Regular rate and rhythm with a normal S1 and S2. No gallops, murmurs, or rubs. Normal PMI, no JVD. No pulse deficits. Respiratory: Lungs have equal breath sounds bilaterally, clear to auscultation and percussion. No rales, rhonchi or wheezes noted. No increased work of breathing, no retractions or nasal flaring. Abdomen/GI: Soft, non-tender, with normal bowel sounds. No distension or tympany. No guarding or rebound. No evidence of tenderness throughout. Back: No spinal tenderness. No costovertebral tenderness. Full range of motion. Skin: Warm, dry with normal turgor. Normal color with no rashes, no lesions, and no evidence of cellulitis. MS/ Extremity: Pulses equal, no cyanosis. Neurovascular intact. Full, normal range of motion. Neuro: Awake and alert, GCS 15, oriented to person, place, time, and situation. Cranial nerves II-XII grossly intact. Motor strength 5/5 in all extremities. Sensory grossly intact. Cerebellar exam normal. Normal gait. Psych: Awake, alert, with orientation to person, place and time. Behavior, mood, and affect are within normal limits. Vital Signs: 14:13 Temp 98.6; Weight 58.51 kg; Height 4 ft. 9 in. ; Pain 8/10; ap3 14:17 BP 179 / 100; Pulse 81; Resp 16; Temp 98.5; Pulse Ox 100% on R/A; bp 15:19 BP 170 / 109; Pulse 74; Temp 99(O); Pulse Ox 100% on R/A; ss 15:47 BP 162 / 97; Pulse 70; Resp 16; Temp 98.5; Pulse Ox 97% ; bp 16:30 BP 162 / 97; Pulse 70; Resp 16; Pulse Ox 97% ; db 14:13 Body Mass Index 27.92 (58.51 kg, 144.78 cm) ap3 14:13 Pain Scale: Adult ap3 MDM: 14:12 Medical Screening Exam initiated sp3 15:00 Data reviewed: vital signs, nurses notes, old medical records. ED course: 49-year-old sp3 female with mild hypertension and mild headache. Full workup negative yesterday. We will give clonidine 0.2 mg to reassure patient that it is safe to take. Also Tylenol p.o. Reassess and probable discharge home once blood pressure and headache are improved.. 16:03 ED course: Blood pressure down to 162/97. Patient feels much better. We will safely sp3 discharge patient home at this time.. Administered Medications: 14:55 Drug: Acetaminophen PO 650 mg PO once Route: PO; bp 16:47 Follow up: Response: No adverse reaction db 14:55 Drug: cloNIDine PO 0.2 mg PO once Route: PO; bp 16:47 Follow up: Response: No adverse reaction db Disposition Summary: 07/30/25 16:04 Discharge Ordered Notes: Location: Home sp3 Condition: Stable sp3 Diagnosis - Hypertension sp3 Followup: sp3 - With: Private Physician - When: Upon discharge from the Emergency Department - Reason: Continuance of care Discharge Instructions: - Discharge Summary Sheet sp3 - Managing Your Hypertension sp3 Forms: - Medication Reconciliation Form sp3 - Antibiotic Education sp3 - Prescription Opioid Use sp3 - Patient Portal Instructions sp3 - Leadership Thank You Letter sp3 Signatures: Rodriguez Rivera RN RN bp Zuri Clinton RN RN ap3 Nery Cochran MD MD sp3 Jerilyn Davis RN RN db
--- NOTE | 2025-07-30 16:05 | ER ---
Nurse's Notes [facility] Name: Cynthia López Age: 49 yrs Sex: Female : 1975 Arrival Date: 07/30/2025 Time: 13:57 Bed 5 Private MD: Diagnosis: Hypertension Presentation: 07/30 14:13 Chief complaint: Patient states: she was seen yesterday at another facility for high ap3 blood pressure and headache. patient reports today she is having continued headache with pain 8/10 on the pain scale. Coronavirus screen: At this time, the client does not indicate any symptoms associated with coronavirus-19. Ebola Screen: No symptoms or risks identified at this time. Risk Assessment: Do you want to hurt yourself or someone else? Patient reports no desire to harm self or others. Onset of symptoms was July 29, 2025. 14:13 Method Of Arrival: Ambulatory ap3 14:17 Initial Sepsis Screen: Does the patient meet any 2 criteria? No. Patient's initial ap3 sepsis screen is negative. Does the patient have a suspected source of infection? No. Patient's initial sepsis screen is negative. 14:17 Acuity: RAKEL 3 ap3 Triage Assessment: 14:14 Headache History: The patient has had previous headaches. General: Appears in no ap3 apparent distress. Behavior is calm, cooperative, appropriate for age. Pain: Complains of pain in head Pain currently is 8 out of 10 on a pain scale. Pain began 1 day ago. Neuro: Level of Consciousness is awake, alert, obeys commands, Oriented to person, place, time, situation, Appropriate for age Reports headache. Cardiovascular: Patient's skin is warm and dry. Respiratory: Airway is patent Respiratory effort is even, unlabored, Respiratory pattern is regular, symmetrical. Historical: - Allergies: 14:14 No Known Allergies; ap3 - Home Meds: 14:14 metoprolol tartrate 50 mg Oral tablet daily [Active]; ap3 - PMHx: 14:14 Hypertensive disorder; ap3 - PSHx: 14:14 section; ap3 - Immunization history:: Adult Immunizations unknown. - Infectious Disease History:: Denies. - Social history:: Smoking status: Patient reports the use of cigarette tobacco products, smokes one pack cigarettes per day. Screenin:15 [facility] ED Fall Risk Assessment (Adult) History of falling in the last 3 months, ap3 including since admission No falls in past 3 months (0 pts) Confusion or Disorientation No (0 pts) Intoxicated or Sedated No (0 pts) Impaired Gait No (0 pts) Mobility Assist Device Used No (0 pt) Altered Elimination No (0 pt) Score/Fall Risk Level 0 - 2 = Low Risk Oriented to surroundings, Maintained a safe environment, Educated pt \T\ family on fall prevention, incl call for assistance when getting out of bed, Assessed \T\ reinforced patient's understanding of fall precautions, Hourly rounding (assess needs \T\ fall precautionary measures) done, Used ambulatory aids as needed (educated on \T\ assisted with). Abuse screen: Denies threats or abuse. Nutritional screening: No deficits noted. Tuberculosis screening: No symptoms or risk factors identified. Assessment: 14:15 General: SEE TRIAGE NOTE. bp 15:48 Reassessment: Patient appears in no apparent distress at this time. Patient is alert, bp oriented x 3, equal unlabored respirations, skin warm/dry/pink. Patient states symptoms have improved. 16:30 Reassessment: Patient appears in no apparent distress at this time. Patient and/or db family updated on plan of care and expected duration. Pain level reassessed. Patient is alert, oriented x 3, equal unlabored respirations, skin warm/dry/pink. Vital Signs: 14:13 Temp 98.6; Weight 58.51 kg; Height 4 ft. 9 in. ; Pain 8/10; ap3 14:17 BP 179 / 100; Pulse 81; Resp 16; Temp 98.5; Pulse Ox 100% on R/A; bp 15:19 BP 170 / 109; Pulse 74; Temp 99(O); Pulse Ox 100% on R/A; ss 15:47 BP 162 / 97; Pulse 70; Resp 16; Temp 98.5; Pulse Ox 97% ; bp 16:30 BP 162 / 97; Pulse 70; Resp 16; Pulse Ox 97% ; db 14:13 Body Mass Index 27.92 (58.51 kg, 144.78 cm) ap3 14:13 Pain Scale: Adult ap3 ED Course: 14:01 Patient arrived in ED. mr 14:01 Nery Cochran MD is Attending Physician. sp3 14:08 Carlos, Lynsay, RN is Primary Nurse. ll1 14:15 Arm band placed on right wrist. ap3 14:17 Triage completed. ap3 15:48 Patient has correct armband on for positive identification. bp 16:45 Provided Education on: DISCHARGE. Warm blanket given. db 16:45 No provider procedures requiring assistance completed. Patient did not have IV access db during this emergency room visit. Administered Medications: 14:55 Drug: Acetaminophen PO 650 mg PO once Route: PO; bp 16:47 Follow up: Response: No adverse reaction db 14:55 Drug: cloNIDine PO 0.2 mg PO once Route: PO; bp 16:47 Follow up: Response: No adverse reaction db Medication: 16:45 VIS not applicable for this client. db Outcome: 16:04 Discharge ordered by . sp3 16:45 Condition: stable db 16:45 Discharged to home ambulatory, db 16:45 Discharge instructions given to patient, Instructed on discharge instructions, follow up and referral plans. 16:47 Patient left the ED. db Signatures: Peggy Alexis, Reg Reg Jo Lorenzo, RN DIEUDONNE Rodriguez Rivera RN RN bp Zuri Clinton RN RN ap3 Sanjiv Gonzalez, RN RN ll1 Nery Cochran MD MD sp3 Jerilyn Davis RN RN db Corrections: (The following items were deleted from the chart) 14:55 14:17 BP 179 / 100; Pulse 81bpm; Pulse Ox 100% RA; ap3 bp 16:46 16:45 BP 162 / 97; Pulse 70bpm; Resp 16bpm; Pulse Ox 97%; db db
[2025-07-30 17:21] VITALS: BP 162/97; TEMP 98.5; O2SAT 97
== END 2025-07-30 16:47 | disposition home or self-care (01) ==
LOC: ER 13:57
DX: I10 Essential (primary) hypertension (principal); F17.210 Nicotine dependence, cigarettes, uncomplicated
CPT/HCPCS: 99283